=== PATIENT | female | born 1950 | race Caucasian/White ===

== ENCOUNTER 2017-07-18 20:07 | Emergency (ER) | payer OTHER | END 2017-07-18 23:05 | disposition home or self-care (01) | LOC: M ED 20:07 | DX: S63.612A Unspecified sprain of right middle finger, initial encounter (principal); S63.614A Unspecified sprain of right ring finger, initial encounter; X58.XXXA Exposure to other specified factors, initial encounter; Y92.89 Other specified places as the place of occurrence of the external cause; I11.0 Hypertensive heart disease with heart failure; E11.9 Type 2 diabetes mellitus without complications; I50.9 Heart failure, unspecified; I25.10 Atherosclerotic heart disease of native coronary artery without angina pectoris; Z79.899 Other long term (current) drug therapy; Z79.4 Long term (current) use of insulin; Z88.0 Allergy status to penicillin | CPT/HCPCS: 73130 ==

== ENCOUNTER → 2017-09-01 | Outpatient (REF) | payer OTHER ==
[2017-09-01 11:47] LABS: BASO % 0.2 % (0.0-1.0); EOS # 0.2 10^3/uL (0.0-0.50); EOS % 1.7 % (0.0-3.0); HEMOGLOBIN 12.3 g/dl (12.0-15.5); IMMATURE GRANULOCYTE % 0.3 % (0-3.0); LYMPH # 3.3 10^3/uL (1.5-4.5); MEAN CORPUSCULAR HEMOGLOBIN 30.8 pg (27.0-33.0); MEAN CORPUSCULAR HGB CONC 30.8 g/dl (32.0-36.5); MEAN CORPUSCULAR VOLUME 100.3 fl (80.0-96.0); MONO # 0.7 10^3/uL (0.0-0.8); MONO % 5.3 % (0.0-5.0); NEUTROPHILS # 8.8 10^3/uL (1.8-7.7); NEUTROPHILS % 67.5 % (36.0-66.0); PLATELET COUNT, AUTOMATED 333 10^3/uL (150-450); RED BLOOD COUNT 3.99 10^6/uL (4.00-5.40); RED CELL DISTRIBUTION WIDTH 13.2 % (11.5-14.5)
[2017-09-01 12:28] LABS: ALBUMIN 3.4 GM/DL (3.2-5.2); ALKALINE PHOSPHATASE 128 U/L (45-117); ALT/SGPT 15 U/L (12-78); ANION GAP 8 MEQ/L (8-16); AST/SGOT 13 U/L (7-37); BILIRUBIN,TOTAL 0.3 MG/DL (0.2-1.0); BLOOD UREA NITROGEN 24 MG/DL (7-18); CALCIUM LEVEL 8.6 MG/DL (8.8-10.2); CARBON DIOXIDE LEVEL 30 MEQ/L (21-32); CHLORIDE LEVEL 104 MEQ/L (98-107); CHOLESTEROL LEVEL 126 MG/DL (<200); CREATININE FOR GFR 0.87 MG/DL (0.55-1.30); GLOMERULAR FILTRATION RATE > 60.0 (>45); GLUCOSE, FASTING 92 MG/DL (70-100); HDL CHOLESTEROL 35 MG/DL (>40); LDL CHOLESTEROL 64.2 MG/DL (<100); NON-HDL-C 91 MG/DL; SODIUM LEVEL 142 MEQ/L (136-145); TOTAL PROTEIN 6.8 GM/DL (6.4-8.2); TRIGLYCERIDES LEVEL 134 MG/DL (<150)
[2017-09-01 12:59] LABS: ESTIMATED AVERAGE GLUCOSE 197 MG/DL (60-110); HEMOGLOBIN A1c 8.5 %
== END ==
LOC: M LABDRAW1 10:07
DX: I10 Essential (primary) hypertension (principal); E78.5 Hyperlipidemia, unspecified; E11.9 Type 2 diabetes mellitus without complications; J44.9 Chronic obstructive pulmonary disease, unspecified

== ENCOUNTER → 2017-09-07 | Outpatient (REF) | payer OTHER ==
[2017-09-07 16:36] LABS: CREATININE, URINE 89.1 MG/DL; MALB URINE SIEMENS 8.8 MG/L; MAU/CREAT RATIO 9.8 MCG/MG (0.0-30.0)
== END ==
LOC: M LAB REF 15:41
DX: E78.5 Hyperlipidemia, unspecified (principal); E11.9 Type 2 diabetes mellitus without complications; I10 Essential (primary) hypertension; J44.9 Chronic obstructive pulmonary disease, unspecified
CPT/HCPCS: 82043

== ENCOUNTER → 2017-11-20 | Outpatient (REF) | payer OTHER, MEDICAID ==
[2017-11-20 13:57] LABS: BASO % 0.5 % (0.0-1.0); EOS # 0.1 10^3/uL (0.0-0.50); EOS % 1.6 % (0.0-3.0); HEMATOCRIT 38.9 % (36.0-47.0); IMMATURE GRANULOCYTE % 0.3 % (0-3.0); LYMPH # 2.2 10^3/uL (1.5-4.5); LYMPH % 28.8 % (24.0-44.0); MEAN CORPUSCULAR HEMOGLOBIN 30.5 pg (27.0-33.0); MEAN CORPUSCULAR HGB CONC 30.8 g/dl (32.0-36.5); MONO # 0.5 10^3/uL (0.0-0.8); MONO % 6.2 % (0.0-5.0); NEUTROPHILS # 4.7 10^3/uL (1.8-7.7); NEUTROPHILS % 62.6 % (36.0-66.0); PLATELET COUNT, AUTOMATED 304 10^3/uL (150-450); RED BLOOD COUNT 3.93 10^6/uL (4.00-5.40); RED CELL DISTRIBUTION WIDTH 14.1 % (11.5-14.5); WHITE BLOOD COUNT 7.5 10^3/uL (4.0-10.0)
[2017-11-20 14:12] LABS: ALBUMIN 3.4 GM/DL (3.2-5.2); ALKALINE PHOSPHATASE 117 U/L (45-117); ALT/SGPT 22 U/L (12-78); ANION GAP 8 MEQ/L (8-16); AST/SGOT 19 U/L (7-37); BILIRUBIN,TOTAL 0.3 MG/DL (0.2-1.0); BLOOD UREA NITROGEN 15 MG/DL (7-18); CALCIUM LEVEL 8.8 MG/DL (8.8-10.2); CARBON DIOXIDE LEVEL 31 MEQ/L (21-32); CHLORIDE LEVEL 105 MEQ/L (98-107); CHOLESTEROL LEVEL 120 MG/DL (<200); CREATININE FOR GFR 0.74 MG/DL (0.55-1.30); ESTIMATED AVERAGE GLUCOSE 183 MG/DL (60-110); GLOMERULAR FILTRATION RATE > 60.0 (>45); GLUCOSE, FASTING 88 MG/DL (70-100); HDL CHOLESTEROL 32 MG/DL (>40); LDL CHOLESTEROL 68.2 MG/DL (<100); NON-HDL-C 88 MG/DL; POTASSIUM SERUM 4.5 MEQ/L (3.5-5.1); SODIUM LEVEL 144 MEQ/L (136-145); TOTAL PROTEIN 6.5 GM/DL (6.4-8.2); TRIGLYCERIDES LEVEL 99 MG/DL (<150)
== END ==
LOC: M LABDRAW1 13:04
DX: E11.9 Type 2 diabetes mellitus without complications (principal); E78.5 Hyperlipidemia, unspecified; I10 Essential (primary) hypertension; J44.9 Chronic obstructive pulmonary disease, unspecified
CPT/HCPCS: 84443

== ENCOUNTER → 2018-03-01 | Outpatient (REF) | payer OTHER, MEDICAID ==
[2018-03-01 16:22] LABS: ALBUMIN 3.2 GM/DL (3.2-5.2); ALBUMIN/GLOBULIN RATIO 0.97 (1.00-1.93); ALKALINE PHOSPHATASE 124 U/L (45-117); ALT/SGPT 20 U/L (12-78); ANION GAP 6 MEQ/L (8-16); AST/SGOT 19 U/L (7-37); BILIRUBIN,TOTAL 0.3 MG/DL (0.2-1.0); BLOOD UREA NITROGEN 14 MG/DL (7-18); CALCIUM LEVEL 8.2 MG/DL (8.8-10.2); CARBON DIOXIDE LEVEL 32 MEQ/L (21-32); CHLORIDE LEVEL 105 MEQ/L (98-107); CHOLESTEROL LEVEL 106 MG/DL (<200); CHOLESTEROL RISK RATIO 3.117 (<5); CREATININE FOR GFR 0.71 MG/DL (0.55-1.30); GLOMERULAR FILTRATION RATE > 60.0 (>45); GLUCOSE, FASTING 81 MG/DL (70-100); HDL CHOLESTEROL 34 MG/DL (>40); LDL CHOLESTEROL 45 MG/DL (<100); NON-HDL-C 72 MG/DL; POTASSIUM SERUM 4.7 MEQ/L (3.5-5.1); SODIUM LEVEL 143 MEQ/L (136-145); TOTAL PROTEIN 6.5 GM/DL (6.4-8.2); TRIGLYCERIDES LEVEL 135 MG/DL (<150)
[2018-03-01 17:19] LABS: ESTIMATED AVERAGE GLUCOSE 160 MG/DL (60-110); HEMOGLOBIN A1c 7.2 %
== END ==
LOC: M LABDRAW1 15:53
DX: I10 Essential (primary) hypertension (principal); E78.5 Hyperlipidemia, unspecified; E11.9 Type 2 diabetes mellitus without complications
CPT/HCPCS: 80053

== ENCOUNTER 2018-07-10 13:12 | Inpatient (IN) | payer MEDICARE, MEDICAID ==
[~2018-07-10] VITALS: Ht 153.7 cm; Wt 90.8 kg
[~2018-07-10 13:12] MED LIST: /RANI15TA PO; ACTO45TA12 PO; ACTO45TA15 PO; ADVI200C5 PO; ALBU17IN INH; ASPI81TA2 PO; BAYE1TAB5 PO; CALC600T7 PO; DAILTAB PO; DIOV320T2 PO; DOCU100C PO; GLYB5TA PO; GLYB5TAB5 PO; HYDR12CA PO; INSUN SC; JANU100T PO; LASI40TA PO; LISI-538 PO; LISI20TA PO; MECL-68 PO; METF-414 PO; METF10004 PO; METO50TA2 PO; METO50TA7 PO; PLAVIX PO; PRIL20CA9 PO; RANI150T PO; SERT-141 PO; SIMV20TA2 PO; SLOWTAB PO; THERTAB2 PO; TYLE650T25 PO; VENTAER IN; VESI5TAB PO; ZOLO100T PO
[2018-07-10] MEDS ORDERED: LISI-542 PO (13:41)
[2018-07-10] MEDS ORDERED: METF-415 PO (13:41)
[2018-07-10] MEDS ORDERED: FERR1TAB8 PO (13:41)
[2018-07-10] MEDS ORDERED: AMIT10TA PO (13:41)
[2018-07-10] MEDS ORDERED: BREO1INH PO (13:41)
[2018-07-10] MEDS ORDERED: ATOR40TA75 PO (13:41)
[2018-07-10] MEDS ORDERED: ALBU83IN NEB (13:41)
[2018-07-10] MEDS ORDERED: POTA20TA6 PO (13:41)
[2018-07-10] MEDS ORDERED: INSULANT SQ (13:41)
[2018-07-10] MEDS ORDERED: AMLO5TAB6 PO (13:41)
[2018-07-10] MEDS ORDERED: MONT10TA2 PO (13:41)
[2018-07-10] MEDS ORDERED: HYDR12.55 PO (13:41)
[2018-07-10 13:54] LABS: VENOUS BASE EXCESS 4.3 (-2.0-2.0); VENOUS HCO3 31.2 MEQ/L (23.0-27.0); VENOUS O2 SATURATION 79.1 % (60.0-80.0); VENOUS PARTIAL PRESSURE CO2 56.7 mmHg (38.0-50.0); VENOUS PARTIAL PRESSURE O2 46.1 mmHg (30.0-50.0); VENOUS PH 7.359 UNITS (7.330-7.430); VENOUS STANDARD HCO3 27.8 MEQ/L
[2018-07-10 13:55] LABS: BASO % 0.3 % (0.0-1.0); EOS # 0.1 10^3/uL (0.0-0.50); HEMATOCRIT 41.1 % (36.0-47.0); HEMOGLOBIN 12.8 g/dl (12.0-15.5); LYMPH # 2.6 10^3/uL (1.5-4.5); MEAN CORPUSCULAR HEMOGLOBIN 30.8 pg (27.0-33.0); MEAN CORPUSCULAR HGB CONC 31.1 g/dl (32.0-36.5); MONO # 0.4 10^3/uL (0.0-0.8); MONO % 7.3 % (0.0-5.0); NEUTROPHILS # 2.7 10^3/uL (1.8-7.7); NEUTROPHILS % 46.4 % (36.0-66.0); PLATELET COUNT, AUTOMATED 244 10^3/uL (150-450); RED BLOOD COUNT 4.15 10^6/uL (4.00-5.40); WHITE BLOOD COUNT 5.9 10^3/uL (4.0-10.0)
--- NOTE | 2018-07-10 13:55 | REP ---
Chest one-view HISTORY: Cough Comparison: 04/08/2016 The lungs are clear. The heart is normal in size. The pulmonary vasculature is normal in appearance. Impression: No acute disease. Electronically Signed by Nagi Woo MD 07/10/2018 01:46 P
[2018-07-10 14:28] LABS: INFLUENZA A AMPLIFICATION POSITIVE (NEGATIVE); INFLUENZA B AMPLIFICATION NEGATIVE (NEGATIVE)
[2018-07-10 14:34] LABS: ALBUMIN 3.3 GM/DL (3.2-5.2); ALT/SGPT 23 U/L (12-78); BILIRUBIN,DIRECT 0.1 MG/DL (0.0-0.2); BILIRUBIN,TOTAL 0.4 MG/DL (0.2-1.0); BLOOD UREA NITROGEN 12 MG/DL (7-18); CALCIUM LEVEL 8.3 MG/DL (8.8-10.2); CARBON DIOXIDE LEVEL 31 MEQ/L (21-32); CHLORIDE LEVEL 104 MEQ/L (98-107); CPK CREATINE PHOSPHOKINASE 104 U/L (26-192); CREATININE FOR GFR 0.63 MG/DL (0.55-1.30); GLOMERULAR FILTRATION RATE > 60.0 (>45); GLUCOSE, FASTING 57 MG/DL (70-100); MB/CK RELATIVE INDEX 1.63 (< OR =4); NT-PRO BNP 217 PG/ML (<125); POTASSIUM SERUM 4.1 MEQ/L (3.5-5.1); SODIUM LEVEL 141 MEQ/L (136-145); TOTAL PROTEIN 6.5 GM/DL (6.4-8.2); TROPONIN I < 0.02 NG/ML (< 0.10)
[2018-07-10] MEDS ORDERED: OSELTAMIVIR PHOSPHATE 75 MG CAP (TAMIFLU) PO ONE (15:15)
[2018-07-10] MEDS ORDERED: IPRATROPIUM 0.5MG/ALBUTEROL 2.5MG INH SOL UD 3ML (DUONEB)(J7620) NEB ONE (15:30)
[2018-07-10] MEDS ORDERED: methylPREDNISolone INJ 125 MG/2 ML VIAL (J2930) IV ONE (15:45)
[2018-07-10 16:00] VITALS: O2SAT 90
[2018-07-10] MEDS ORDERED: METO50TA7 PO (18:55)
[2018-07-10] MEDS ORDERED: SLOWTAB2 PO (18:55)
[2018-07-10] MEDS ORDERED: BACK500T PO (18:55)
[2018-07-10] MEDS ORDERED: ALBUTEROL SULFATE 2.5 MG/0.5 ML INH NEB SOLN NEB PRN (20:45)
[2018-07-10] MEDS: METOPROLOL TART 50 MG TAB PO SCH (21:00)
[2018-07-10 22:45] VITALS: BP 130/84
[2018-07-10] MEDS ORDERED: GLUCOSE 4 GM CHEW TABLET PO PRN (22:45)
[2018-07-10] MEDS ORDERED: GLUCAGON FOR INJ 1 MG VIAL (J1610) SC PRN (22:45)
[2018-07-10] MEDS ORDERED: DEXTROSE 50% 50 ML SYRINGE IV PRN (22:45)
[2018-07-10] MEDS: methylPREDNISolone INJ 125 MG/2 ML VIAL (J2930) IV SCH (23:32)
[2018-07-10] MEDS: LEVEMIR (INSULIN DETEMIR) 1 UNITS/0.01ML SQ SCH (23:32)
[2018-07-10] MEDS: HEPARIN SOD (PORCINE) 5000 UNITS/ML VIAL SC SCH (23:32)
[2018-07-11 02:00] VITALS: BP 156/77
[2018-07-11] MEDS: IPRATROPIUM 0.5MG/ALBUTEROL 2.5MG INH SOL UD 3ML (DUONEB)(J7620) NEB SCH ×4 (02:14→20:00)
[2018-07-11] MEDS: BENZONATATE 100 MG CAP PO PRN ×3 (02:23→20:07)
[2018-07-11] MEDS: methylPREDNISolone INJ 125 MG/2 ML VIAL (J2930) IV SCH ×3 (03:54→20:04)
[2018-07-11] MEDS: HEPARIN SOD (PORCINE) 5000 UNITS/ML VIAL SC SCH ×3 (05:14→21:08)
[2018-07-11 06:00] VITALS: BP 156/78
[2018-07-11 06:39] LABS: HEMATOCRIT 39.8 % (36.0-47.0); HEMOGLOBIN 12.6 g/dl (12.0-15.5); LYMPH # 1.2 10^3/uL (1.5-4.5); LYMPH % 38.9 % (24.0-44.0); MEAN CORPUSCULAR HGB CONC 31.7 g/dl (32.0-36.5); MEAN CORPUSCULAR VOLUME 97.8 fl (80.0-96.0); MONO # 0.1 10^3/uL (0.0-0.8); MONO % 2.3 % (0.0-5.0); NEUTROPHILS # 1.7 10^3/uL (1.8-7.7); NEUTROPHILS % 58.5 % (36.0-66.0); PLATELET COUNT, AUTOMATED 239 10^3/uL (150-450); RED BLOOD COUNT 4.07 10^6/uL (4.00-5.40)
[2018-07-11 07:16] LABS: BLOOD UREA NITROGEN 14 MG/DL (7-18); CALCIUM LEVEL 8.8 MG/DL (8.8-10.2); CARBON DIOXIDE LEVEL 27 MEQ/L (21-32); CHLORIDE LEVEL 101 MEQ/L (98-107); CREATININE FOR GFR 0.95 MG/DL (0.55-1.30); GLOMERULAR FILTRATION RATE > 60.0 (>45); GLUCOSE, FASTING 349 MG/DL (70-100); MAGNESIUM LEVEL 1.7 MG/DL (1.8-2.4); POTASSIUM SERUM 3.7 MEQ/L (3.5-5.1); SODIUM LEVEL 136 MEQ/L (136-145)
[2018-07-11] MEDS ORDERED: MAG SULF 1GM/100ML (MAG RUN) 1 GM in APPROPRIATE DILUENT 1 EA IV ONE (08:00)
[2018-07-11] MEDS: BUDESONIDE 0.5 MG/2 ML INHALATION SUSPENSION INH SCH ×2 (08:14→20:00)
--- NOTE | 2018-07-11 08:19 | REP ---
Clinical: Shortness of breath . Comparison: 07/10/2018 . Technique: PA and lateral. Findings: The mediastinum and cardiac silhouette are normal. The lung miranda are clear and without acute consolidation, effusion, or pneumothorax. The skeletal structures are intact and normal. Impression: 1. No acute cardiopulmonary process. Electronically Signed by Chilo Saunders MD 07/11/2018 08:10 A
[2018-07-11] MEDS: LEVEMIR (INSULIN DETEMIR) 1 UNITS/0.01ML SQ SCH ×2 (08:29→20:05)
[2018-07-11] MEDS: amLODIPine 5 MG TAB PO SCH (08:30)
[2018-07-11] MEDS: hydroCHLOROthiazide 12.5 MG CAPSULE PO SCH (08:30)
[2018-07-11] MEDS: ATORVASTATIN 20 MG TAB PO SCH (08:30)
[2018-07-11] MEDS: HumaLOG INSULIN (NovoLOG) PER UNIT SC SCH ×6 (08:30→20:05)
[2018-07-11] MEDS: FERROUS SULFATE 325MG TAB PO SCH (08:30)
[2018-07-11] MEDS: LISINOPRIL 5 MG TAB PO SCH (08:30)
[2018-07-11] MEDS: POTASSIUM CHLORIDE 10 MEQ SR TABLET PO SCH (08:31)
[2018-07-11] MEDS: PANTOPRAZOLE 40MG TAB (PROTONIX) PO SCH (08:31)
[2018-07-11] MEDS: METOPROLOL TART 50 MG TAB PO SCH ×2 (08:31→20:04)
[2018-07-11] MEDS: OSELTAMIVIR PHOSPHATE 75 MG CAP (TAMIFLU) PO SCH ×2 (08:31→20:05)
[2018-07-11] MEDS: AMITRIPTYLINE 10 MG TAB PO SCH (09:00)
[2018-07-11 10:00] VITALS: BP 162/80
--- NOTE | 2018-07-11 13:26 | IPNPDOC ---
Text Note Date of Service The patient was seen on 07/11/18. NOTE Subjective: Patient is 61-year-old female with a PMHx HTN, DM2, DLP, COPD, RUCHI, who presented to the Er with complaints of SOB associated with productive cough and wheezing. The emergency room, patient was found to have a COPD exacerbation and influenza A positive. She was admitted to hospitalist service for further treatment and evaluation. Patient was seen and examined at the bedside. Patient does not complain of chest pain or palpitation. She notes that she still very short of breath with associated wheezing and a productive cough that she's unable to expectorate her sputum. She denies any nausea, vomiting, abdominal pain, constipation, diarrhea or discomfort with urination. Objective: Vitals (See below) General: Lying in bed, no acute distress, comfortable, AAOx3 HEENT: NC, AT CVS: RRR, +S1S2 Lungs: Poor air entry bilaterally, mild wheezing bilaterally, no rhonchi / rales Abdomen: Soft, ND, NT Extremities: - Edema, - Calf tenderness Assessment and plan: Acute COPD exacerbation - likely 2/2 Influenza A - Clinically reports SOB, cough and wheezing - Auscultation with poor air entry bilaterally, and mild wheezing - ABG with pCO2 elevations noted - CXR 07/11: 1. No acute cardiopulmonary process. - c/w Solumedrol - c/w Oseltamivir (Day #2) - c/w Inhaled therapy as ordered HTN - BP moderately elevated - c/w Amlodipine, HCTZ, Lisinopril, Metoprolol DM2 - c/w ISS and Levemir DLP - c/w Atorvastatin RUCHI Depression - c/w Amitriptyline GI prophylaxis - c/w Protonix DVT prophylaxis - c/w Heparin VS,Fishbone, I+O VS, Fishbone, I+O Laboratory Tests 07/10/18 13:41 Red Blood Count 4.15, Mean Corpuscular Volume 99.0 H, Mean Corpuscular Hemoglobin 30.8, Mean Corpuscular Hemoglobin Concent 31.1 L, Red Cell Distribution Width 13.4, Neutrophils (%) (Auto) 46.4, Lymphocytes (%) (Auto) 44.0, Monocytes (%) (Auto) 7.3 H, Eosinophils (%) (Auto) 2.0, Basophils (%) (Auto) 0.3, Neutrophils # (Auto) 2.7, Lymphocytes # (Auto) 2.6, Monocytes # (Auto) 0.4, Eosinophils # (Auto) 0.1, Basophils # (Auto) 0.0 07/11/18 06:21 Red Blood Count 4.07, Mean Corpuscular Volume 97.8 H, Mean Corpuscular Hemoglobin 31.0, Mean Corpuscular Hemoglobin Concent 31.7 L, Red Cell Distribution Width 13.3, Neutrophils (%) (Auto) 58.5, Lymphocytes (%) (Auto) 38.9, Monocytes (%) (Auto) 2.3, Eosinophils (%) (Auto) 0.0, Basophils (%) (Auto) 0.0, Neutrophils # (Auto) 1.7 L, Lymphocytes # (Auto) 1.2 L, Monocytes # (Auto) 0.1, Eosinophils # (Auto) 0.0, Basophils # (Auto) 0.0, Calcium Level 8.8 Vital Signs Date Time Temp Pulse Resp B/P (MAP) Pulse Ox O2 Delivery O2 Flow Rate FiO2 07/11/18 10:00 97.6 77 20 162/80 (107) 92 07/10/18 22:26 Nasal Cannula 2.0 I&O- Last 24 Hours up to 6 AM 07/11/18 06:00 Intake Total 990 ml Output Total 450 ml Balance 540 ml KAYE WALLS MD Jul 11, 2018 13:26
--- NOTE | 2018-07-11 13:29 | HPE ---
DATE OF ADMISSION: 07/10/2018 CHIEF COMPLAINT: Shortness of breath. PRIMARY CARE PROVIDER: Dr. Phill Stiles This is a 67-year-old female with a history of chronic obstructive pulmonary disease (COPD), who states that she had been having a cough for approximately a week that progressively got worse. She became short of breath; and on the day of admission, she could hardly speak full sentences without getting short of breath. She came to the emergency room. Upon arrival, temperature was 99.5, pulse was 73, respiratory rate was 24, blood pressure was 195/90, oxygen (O2) saturation was 91% on room air. Laboratory studies were done. WBC was 5.9, hemoglobin 12.8, hematocrit 41.1, platelets were 244. Sodium was 141, potassium 4.1, chloride 104, CO2 was 31, BUN 12, creatinine was 0.63, calcium was 8.3. A venous blood gas (VBG) showed a pH of 7.359. Influenza A was positive. Blood cultures were drawn. Chest x-ray was done. It showed no acute disease. Electrocardiogram (EKG) was done. It showed sinus rhythm of 83. The patient was given a DuoNeb treatment, a dose of Tamiflu, and Solu-Medrol 125 intravenous (IV) with some improvement in her respiratory status. Assessment was done, and the patient will be admitted inpatient status for acute exacerbation of COPD and influenza A. The patient will be admitted to the medical floor to the hospitalist service physician, Dr. Walker. ALLERGIES: PENICILLIN. SOCIAL HISTORY: She is a . She rarely drinks alcohol. She quit smoking greater than 10 years ago. Recreational drug use none. PAST MEDICAL HISTORY: 1. COPD. 2. Hypertension. 3. Hypercholesterolemia. 4. Anemia. 5. Insulin-dependent diabetes type 2. 6. Obstructive sleep apnea. PAST SURGICAL HISTORY: 1. Total hysterectomy. 2. Kidney stone extraction. 3. Teeth extraction. HOME MEDICATIONS: - magnesium chloride one tablet by mouth daily as needed for leg cramps - Breo Ellipta 100/25 mcg per inhalation, one inhalation daily - albuterol nebulizer every 4 hours as needed for wheezing - amitriptyline 10 mg by mouth daily - amlodipine 5 mg by mouth daily - atorvastatin 40 mg by mouth daily - ferrous sulfate 325 mg by mouth daily - hydrochlorothiazide 12.5 mg by mouth daily - insulin Lantus 48 units subcutaneously twice a day - lisinopril 5 mg by mouth daily - metformin ER 1000 mg two tablets by mouth each evening - metoprolol tartrate 50 mg by mouth daily and 100 mg by mouth each evening - - Singulair 10 mg by mouth each evening - potassium chloride 20 mEq by mouth daily FAMILY HISTORY: Noncontributory. Eleven-systems review was done and was unremarkable other than the complaint of inpatient shortness of breath, cough, fever, chills. She denied any hemoptysis. PHYSICAL EXAMINATION: A 67-year-old cooperative female. Blood pressure 158/80, pulse 78, respirations 20, oxygen (O2) saturation 90% on 2 liters. The patient is alert and oriented times three. Pupils equal and react to light. Cornea and sclerae clear. Conjunctivae normal. No facial asymmetry. Pharynx, tongue, and gums pink and moist. Tongue is midline. NECK: Is supple without lymphadenopathy. No thyromegaly. No goiter. Carotids 2+ without bruit. CHEST: Has decreased breath sounds. No wheeze or retraction. HEART: Is regular. ABDOMEN: Benign. Bowel sounds positive. GENITOURINARY ()/RECTAL: Not done. EXTREMITIES: Show equal strength. Full range of motion. No clubbing, cyanosis, or edema. Peripheral pulses equal and palpable bilaterally. SKIN: Is warm and dry. IMPRESSION AND PLAN: 1. Influenza A. Tamiflu 75 mg by mouth twice a day for 5 days. 2. Acute exacerbation of chronic obstructive pulmonary disease. IV Solu-Medrol. DuoNeb treatments. Budesonide via nebulizer. improved for cough. 3. Hypertension. Continue amlodipine, metoprolol, lisinopril. 4. Hypercholesterolemia. Continue atorvastatin. 5. Insulin-dependent diabetes type 2. Continue long-acting insulin 48 units subcutaneously twice a day. Fingerstick blood sugars before meals and at bedtime with coverage. Humalog per protocol. Consistent-carbohydrate diet. 6. Anemia. Continue iron supplement. The patient will be admitted inpatient status. Will require two midnights to the hospitalist service.
[2018-07-11 14:00] VITALS: BP 149/66
[2018-07-11] MEDS: MONTELUKAST 10 MG TAB PO SCH (16:41)
[2018-07-11] MEDS ORDERED: metFORMIN XR 500MG TAB *GLUCOPHAGE XR PO SCH (17:00)
[2018-07-11 18:00] VITALS: BP 151/67
--- NOTE | 2018-07-11 20:35 | ECGEPIP ---
Stationary ECG Study [facility] - ED Test Date: 2018-07-10 Pat Name: TOM MART Department: Room: - Gender: F Vascular Physician: CT : 1950 Requested By: Samantha Rodrigues Order Number: [id number] Reading MD: Samantha Rodrigues Measurements Intervals [place] Rate: 68 P: 85 KS: 146 QRS: 19 QRSD: 83 T: 40 QT: 386 QTc: 411 Interpretive Statements SINUS RHYTHM LOW QRS VOLTAGE IN PRECORDIAL LEADS DELAYED R PROGRESSION DECREASED RATE 04/08/16 Electronically Signed On 07-11-2018 20:34:50 EST by Samantha Rodrigues
[2018-07-11 22:00] VITALS: BP 166/86
[2018-07-12 02:00] VITALS: BP 131/60
[2018-07-12] MEDS: IPRATROPIUM 0.5MG/ALBUTEROL 2.5MG INH SOL UD 3ML (DUONEB)(J7620) NEB SCH ×4 (02:00→20:13)
[2018-07-12] MEDS: HEPARIN SOD (PORCINE) 5000 UNITS/ML VIAL SC SCH ×3 (04:45→21:42)
[2018-07-12] MEDS: methylPREDNISolone INJ 125 MG/2 ML VIAL (J2930) IV SCH ×2 (04:45→16:50)
[2018-07-12 06:00] VITALS: BP 156/78
[2018-07-12 06:38] LABS: BASO % 0.1 % (0.0-1.0); HEMATOCRIT 36.9 % (36.0-47.0); HEMOGLOBIN 11.9 g/dl (12.0-15.5); LYMPH # 1.3 10^3/uL (1.5-4.5); LYMPH % 16.8 % (24.0-44.0); MEAN CORPUSCULAR HEMOGLOBIN 30.9 pg (27.0-33.0); MEAN CORPUSCULAR HGB CONC 32.2 g/dl (32.0-36.5); MEAN CORPUSCULAR VOLUME 95.8 fl (80.0-96.0); MONO # 0.5 10^3/uL (0.0-0.8); MONO % 6.5 % (0.0-5.0); NEUTROPHILS # 5.9 10^3/uL (1.8-7.7); NEUTROPHILS % 76.3 % (36.0-66.0); PLATELET COUNT, AUTOMATED 248 10^3/uL (150-450); RED BLOOD COUNT 3.85 10^6/uL (4.00-5.40); WHITE BLOOD COUNT 7.8 10^3/uL (4.0-10.0)
[2018-07-12 07:06] LABS: BLOOD UREA NITROGEN 17 MG/DL (7-18); CALCIUM LEVEL 8.5 MG/DL (8.8-10.2); CARBON DIOXIDE LEVEL 30 MEQ/L (21-32); CHLORIDE LEVEL 100 MEQ/L (98-107); CREATININE FOR GFR 0.75 MG/DL (0.55-1.30); GLOMERULAR FILTRATION RATE > 60.0 (>45); GLUCOSE, FASTING 232 MG/DL (70-100); SODIUM LEVEL 137 MEQ/L (136-145)
[2018-07-12] MEDS: HumaLOG INSULIN (NovoLOG) PER UNIT SC SCH ×5 (07:30→21:42)
[2018-07-12 07:54] LABS: MAGNESIUM LEVEL 2.2 MG/DL (1.8-2.4)
[2018-07-12 08:30] VITALS: BP 142/70
[2018-07-12] MEDS: BUDESONIDE 0.5 MG/2 ML INHALATION SUSPENSION INH SCH ×2 (08:42→20:13)
[2018-07-12] MEDS: ACETYLCYSTEINE 20% 4 ML VIAL (200MG/ML) INH SCH ×3 (08:42→20:13)
[2018-07-12] MEDS: AMITRIPTYLINE 10 MG TAB PO SCH (09:00)
--- NOTE | 2018-07-12 10:46 | IPNPDOC ---
Text Note Date of Service The patient was seen on 07/12/18. NOTE Subjective: Patient is 61-year-old female with a PMHx HTN, DM2, DLP, COPD, RUCHI, who presented to the Er with complaints of SOB associated with productive cough and wheezing. The emergency room, patient was found to have a COPD exacerbation and influenza A positive. She was admitted to hospitalist service for further treatment and evaluation. Patient was seen and examined at the bedside. Clinically patient notes that her breathing is doing better. She still reports difficulty expectorating. Denies any CP, or palpitations. Denies any N/V, abdominal pain, C/D or dysuria. Objective: Vitals (See below) General: Lying in bed, no acute distress, comfortable, AAOx3 HEENT: NC, AT CVS: RRR, +S1S2 Lungs: Poor air entry bilaterally, no significant wheezing appreciated, no rhonchi / rales Abdomen: Soft, Non-distended, non-tender Extremities: No evidence of edema, - Calf tenderness Assessment and plan: Acute COPD exacerbation - likely 2/2 Influenza A - Clinically reports SOB, cough and wheezing - Auscultation with poor air entry bilaterally, and mild wheezing - ABG with pCO2 elevations noted - CXR 07/11: 1. No acute cardiopulmonary process. - c/w Solumedrol; will reduce dose - c/w Oseltamivir (Day #3) - c/w Inhaled therapy as ordered HTN - BP better controlled - c/w Amlodipine, HCTZ, Lisinopril, Metoprolol DM2 - c/w ISS and Levemir DLP - c/w Atorvastatin RUCHI Depression - c/w Amitriptyline GI prophylaxis - c/w Protonix DVT prophylaxis - c/w Heparin VS,Fishbone, I+O VS, Fishbone, I+O Laboratory Tests 07/12/18 06:23 Red Blood Count 3.85 L, Mean Corpuscular Volume 95.8, Mean Corpuscular Hemoglobin 30.9, Mean Corpuscular Hemoglobin Concent 32.2, Red Cell Distribution Width 13.5, Neutrophils (%) (Auto) 76.3 H, Lymphocytes (%) (Auto) 16.8 L, Monocytes (%) (Auto) 6.5 H, Eosinophils (%) (Auto) 0.0, Basophils (%) (Auto) 0.1, Neutrophils # (Auto) 5.9, Lymphocytes # (Auto) 1.3 L, Monocytes # (Auto) 0.5, Eosinophils # (Auto) 0.0, Basophils # (Auto) 0.0, Calcium Level 8.5 L Vital Signs Date Time Temp Pulse Resp B/P (MAP) Pulse Ox O2 Delivery O2 Flow Rate FiO2 07/12/18 08:30 98.3 62 20 142/70 (94) 89 07/10/18 22:26 Nasal Cannula 2.0 I&O- Last 24 Hours up to 6 AM 07/12/18 06:00 Intake Total 1560 ml Output Total 1350 ml Balance 210 ml KAYE WALLS MD Jul 12, 2018 10:46
[2018-07-12] MEDS: OSELTAMIVIR PHOSPHATE 75 MG CAP (TAMIFLU) PO SCH ×2 (11:19→21:43)
[2018-07-12] MEDS: LISINOPRIL 5 MG TAB PO SCH (11:19)
[2018-07-12] MEDS: PANTOPRAZOLE 40MG TAB (PROTONIX) PO SCH (11:21)
[2018-07-12] MEDS: METOPROLOL TART 50 MG TAB PO SCH ×2 (11:21→21:43)
[2018-07-12] MEDS: hydroCHLOROthiazide 12.5 MG CAPSULE PO SCH (11:21)
[2018-07-12] MEDS: POTASSIUM CHLORIDE 10 MEQ SR TABLET PO SCH (11:21)
[2018-07-12] MEDS: amLODIPine 5 MG TAB PO SCH (11:22)
[2018-07-12] MEDS: ATORVASTATIN 20 MG TAB PO SCH (11:22)
[2018-07-12] MEDS: FERROUS SULFATE 325MG TAB PO SCH (11:22)
[2018-07-12] MEDS: LEVEMIR (INSULIN DETEMIR) 1 UNITS/0.01ML SQ SCH ×2 (11:23→21:42)
[2018-07-12 14:15] VITALS: BP 144/70
[2018-07-12] MEDS: MONTELUKAST 10 MG TAB PO SCH (16:50)
[2018-07-12 22:00] VITALS: BP 152/68
[2018-07-13] MEDS: IPRATROPIUM 0.5MG/ALBUTEROL 2.5MG INH SOL UD 3ML (DUONEB)(J7620) NEB SCH ×4 (00:48→20:44)
[2018-07-13] MEDS: HEPARIN SOD (PORCINE) 5000 UNITS/ML VIAL SC SCH ×3 (05:15→21:20)
[2018-07-13] MEDS: methylPREDNISolone INJ 125 MG/2 ML VIAL (J2930) IV SCH (05:16)
[2018-07-13 06:00] VITALS: BP 122/62
[2018-07-13 06:43] LABS: BASO % 0.1 % (0.0-1.0); HEMATOCRIT 36.9 % (36.0-47.0); HEMOGLOBIN 11.8 g/dl (12.0-15.5); LYMPH % 20.6 % (24.0-44.0); MEAN CORPUSCULAR HEMOGLOBIN 31.5 pg (27.0-33.0); MEAN CORPUSCULAR VOLUME 98.4 fl (80.0-96.0); MONO # 0.8 10^3/uL (0.0-0.8); MONO % 8.1 % (0.0-5.0); NEUTROPHILS # 6.8 10^3/uL (1.8-7.7); NEUTROPHILS % 70.6 % (36.0-66.0); PLATELET COUNT, AUTOMATED 249 10^3/uL (150-450); RED BLOOD COUNT 3.75 10^6/uL (4.00-5.40); WHITE BLOOD COUNT 9.7 10^3/uL (4.0-10.0)
[2018-07-13 07:13] LABS: BLOOD UREA NITROGEN 16 MG/DL (7-18); CALCIUM LEVEL 8.2 MG/DL (8.8-10.2); CARBON DIOXIDE LEVEL 30 MEQ/L (21-32); CHLORIDE LEVEL 103 MEQ/L (98-107); CREATININE FOR GFR 0.76 MG/DL (0.55-1.30); GLOMERULAR FILTRATION RATE > 60.0 (>45); GLUCOSE, FASTING 183 MG/DL (70-100); MAGNESIUM LEVEL 2.1 MG/DL (1.8-2.4); POTASSIUM SERUM 4.1 MEQ/L (3.5-5.1); SODIUM LEVEL 139 MEQ/L (136-145)
[2018-07-13] MEDS: ACETYLCYSTEINE 20% 4 ML VIAL (200MG/ML) INH SCH ×2 (07:22→20:44)
[2018-07-13] MEDS: BUDESONIDE 0.5 MG/2 ML INHALATION SUSPENSION INH SCH ×2 (07:22→20:44)
[2018-07-13] MEDS: HumaLOG INSULIN (NovoLOG) PER UNIT SC SCH ×4 (07:55→21:20)
[2018-07-13 08:03] VITALS: BP 158/80
[2018-07-13] MEDS: AMITRIPTYLINE 10 MG TAB PO SCH (10:37)
[2018-07-13] MEDS: LISINOPRIL 5 MG TAB PO SCH (10:38)
[2018-07-13] MEDS: ATORVASTATIN 20 MG TAB PO SCH (10:38)
[2018-07-13] MEDS: OSELTAMIVIR PHOSPHATE 75 MG CAP (TAMIFLU) PO SCH ×2 (10:39→21:19)
[2018-07-13] MEDS: POTASSIUM CHLORIDE 10 MEQ SR TABLET PO SCH (10:39)
[2018-07-13] MEDS: FERROUS SULFATE 325MG TAB PO SCH (10:40)
[2018-07-13] MEDS: hydroCHLOROthiazide 12.5 MG CAPSULE PO SCH (10:40)
[2018-07-13] MEDS: METOPROLOL TART 50 MG TAB PO SCH ×2 (10:40→21:19)
[2018-07-13] MEDS: PANTOPRAZOLE 40MG TAB (PROTONIX) PO SCH (10:41)
[2018-07-13] MEDS: amLODIPine 5 MG TAB PO SCH (10:41)
[2018-07-13] MEDS: LEVEMIR (INSULIN DETEMIR) 1 UNITS/0.01ML SQ SCH ×2 (10:42→21:21)
[2018-07-13 12:30] VITALS: BP 144/78
[2018-07-13] MEDS: ACETAMINOPHEN TAB 650MG DOSE (2X325MG) PO PRN (13:29)
[2018-07-13 14:00] VITALS: BP 122/60
--- NOTE | 2018-07-13 15:36 | IPNPDOC ---
Text Note Date of Service The patient was seen on 07/13/18. NOTE Subjective: Patient is 61-year-old female with a PMHx HTN, DM2, DLP, COPD, RUCHI, who presented to the Er with complaints of SOB associated with productive cough and wheezing. The emergency room, patient was found to have a COPD exacerbation and influenza A positive. She was admitted to hospitalist service for further treatment and evaluation. Patient was seen and examined at the bedside. Patient notes that there breathing is doing slightly better. They've noted that they have been able to expectorate sputum. He denies any nausea or vomiting, any abdominal pain. The patient, diarrhea or urinary discomfort. Objective: Vitals (See below) General: Lying in bed, no acute distress, comfortable, AAOx3 HEENT: NC, AT CVS: RRR, +S1S2 Lungs: Poor air entry bilaterally, auscultation is without rhonchi, rales or wheezing Abdomen: Abdomen is soft, non-distended without tenderness Extremities: No evidence of edema, - Calf tenderness Assessment and plan: Acute COPD exacerbation - likely 2/2 Influenza A - Clinically reports SOB, cough and wheezing - Auscultation with poor air entry bilaterally, and mild wheezing - ABG with pCO2 elevations noted - CXR 07/11: 1. No acute cardiopulmonary process. - c/w Solumedrol; will reduce dose - c/w Oseltamivir (Day #4) - c/w Inhaled therapy as ordered Positive blood cultures (1 of 2 bottles) - likely 2/2 contaminant - Patient has no fevers or chills - No lactic acidosis or leukocytosis - Maintains afebrile and hemodynamically stable - Blood cultures 07/10: (1 of 2): Gram-positive cocci in clusters - Repeat blood cultures pending - Will continue to hold off on antibiotics HTN - BP better controlled - c/w Amlodipine, HCTZ, Lisinopril, Metoprolol DM2 - c/w ISS and Levemir DLP - c/w Atorvastatin RUCHI Depression - c/w Amitriptyline GI prophylaxis - c/w Protonix DVT prophylaxis - c/w Heparin Disposition: - Awaiting for repeat blood cultures - Will likely transition patient to oral corticosteroids within the next 24-48 hours VS,Fishbone, I+O VS, Fishbone, I+O Laboratory Tests 07/13/18 06:06 Red Blood Count 3.75 L, Mean Corpuscular Volume 98.4 H, Mean Corpuscular Hemo globin 31.5, Mean Corpuscular Hemoglobin Concent 32.0, Red Cell Distribution Width 13.8, Neutrophils (%) (Auto) 70.6 H, Lymphocytes (%) (Auto) 20.6 L, Monocytes (%) (Auto) 8.1 H, Eosinophils (%) (Auto) 0.0, Basophils (%) (Auto) 0.1, Neutrophils # (Auto) 6.8, Lymphocytes # (Auto) 2.0, Monocytes # (Auto) 0.8, Eosinophils # (Auto) 0.0, Basophils # (Auto) 0.0, Calcium Level 8.2 L Vital Signs Date Time Temp Pulse Resp B/P (MAP) Pulse Ox O2 Delivery O2 Flow Rate FiO2 07/13/18 14:00 98.5 75 18 122/60 (80) 90 07/10/18 22:26 Nasal Cannula 2.0 I&O- Last 24 Hours up to 6 AM 07/13/18 06:00 Intake Total 2450 ml Output Total 1700 ml Balance 750 ml KAYE WALLS MD Jul 13, 2018 15:36
[2018-07-13] MEDS: MONTELUKAST 10 MG TAB PO SCH (16:10)
[2018-07-13] MEDS: methylPREDNISolone INJ 40 MG/1 ML VIAL (J2920) IV SCH (16:10)
[2018-07-13 22:00] VITALS: BP 167/79
[2018-07-14] MEDS: IPRATROPIUM 0.5MG/ALBUTEROL 2.5MG INH SOL UD 3ML (DUONEB)(J7620) NEB SCH ×4 (02:00→21:02)
[2018-07-14] MEDS: HEPARIN SOD (PORCINE) 5000 UNITS/ML VIAL SC SCH ×3 (05:35→21:09)
[2018-07-14] MEDS: methylPREDNISolone INJ 40 MG/1 ML VIAL (J2920) IV SCH (05:35)
[2018-07-14 06:00] VITALS: BP 138/68
[2018-07-14 06:53] LABS: MAGNESIUM LEVEL 2.1 MG/DL (1.8-2.4)
[2018-07-14] MEDS: HumaLOG INSULIN (NovoLOG) PER UNIT SC SCH ×4 (07:30→21:08)
[2018-07-14] MEDS: BUDESONIDE 0.5 MG/2 ML INHALATION SUSPENSION INH SCH ×2 (07:31→21:02)
[2018-07-14] MEDS: ACETYLCYSTEINE 20% 4 ML VIAL (200MG/ML) INH SCH ×2 (07:32→21:02)
[2018-07-14 07:50] LABS: BASO % 0.2 % (0.0-1.0); HEMATOCRIT 38.1 % (36.0-47.0); HEMOGLOBIN 12.1 g/dl (12.0-15.5); LYMPH # 4.1 10^3/uL (1.5-4.5); LYMPH % 38.5 % (24.0-44.0); MEAN CORPUSCULAR HEMOGLOBIN 31.6 pg (27.0-33.0); MEAN CORPUSCULAR HGB CONC 31.8 g/dl (32.0-36.5); MEAN CORPUSCULAR VOLUME 99.5 fl (80.0-96.0); MONO # 0.9 10^3/uL (0.0-0.8); MONO % 8.1 % (0.0-5.0); NEUTROPHILS # 5.6 10^3/uL (1.8-7.7); NEUTROPHILS % 52.4 % (36.0-66.0); PLATELET COUNT, AUTOMATED 270 10^3/uL (150-450); RED BLOOD COUNT 3.83 10^6/uL (4.00-5.40); WHITE BLOOD COUNT 10.7 10^3/uL (4.0-10.0)
[2018-07-14 07:55] LABS: BLOOD UREA NITROGEN 19 MG/DL (7-18); CALCIUM LEVEL 8.4 MG/DL (8.8-10.2); CARBON DIOXIDE LEVEL 30 MEQ/L (21-32); CHLORIDE LEVEL 105 MEQ/L (98-107); CREATININE FOR GFR 0.77 MG/DL (0.55-1.30); GLOMERULAR FILTRATION RATE > 60.0 (>45); GLUCOSE, FASTING 80 MG/DL (70-100); POTASSIUM SERUM 3.7 MEQ/L (3.5-5.1); SODIUM LEVEL 142 MEQ/L (136-145)
[2018-07-14] MEDS: ATORVASTATIN 20 MG TAB PO SCH (09:35)
[2018-07-14] MEDS: FERROUS SULFATE 325MG TAB PO SCH (09:35)
[2018-07-14] MEDS: AMITRIPTYLINE 10 MG TAB PO SCH (09:35)
[2018-07-14] MEDS: PANTOPRAZOLE 40MG TAB (PROTONIX) PO SCH (09:36)
[2018-07-14] MEDS: POTASSIUM CHLORIDE 10 MEQ SR TABLET PO SCH (09:36)
[2018-07-14] MEDS: OSELTAMIVIR PHOSPHATE 75 MG CAP (TAMIFLU) PO SCH ×2 (09:36→21:10)
[2018-07-14] MEDS: LISINOPRIL 5 MG TAB PO SCH (09:37)
[2018-07-14] MEDS: METOPROLOL TART 50 MG TAB PO SCH ×2 (09:37→21:10)
[2018-07-14] MEDS: amLODIPine 5 MG TAB PO SCH (09:38)
[2018-07-14] MEDS: hydroCHLOROthiazide 12.5 MG CAPSULE PO SCH (09:38)
[2018-07-14] MEDS: LEVEMIR (INSULIN DETEMIR) 1 UNITS/0.01ML SQ SCH ×2 (10:14→21:09)
[2018-07-14] MEDS: BENZONATATE 100 MG CAP PO PRN ×2 (11:11→21:44)
[2018-07-14 14:00] VITALS: BP 134/67
--- NOTE | 2018-07-14 16:16 | IPNPDOC ---
Text Note Date of Service The patient was seen on 07/14/18. NOTE Subjective: Patient is 61-year-old female with a PMHx HTN, DM2, DLP, COPD, RUCHI, who presented to the Er with complaints of SOB associated with productive cough and wheezing. The emergency room, patient was found to have a COPD exacerbation and influenza A positive. She was admitted to hospitalist service for further treatment and evaluation. Patient was seen and examined at the bedside. . Currently, patient is that her breathing is doing better. Still has mild wheezing but does not have any significant cough. Denies chest pain or palpitations. Denies any nausea, vomiting, abdominal pain, constipation, diarrhea or discomfort with urination. Objective: Vitals (See below) General: Lying in bed, no acute distress, comfortable, AAOx3 HEENT: NC, AT CVS: RRR, +S1S2 Lungs: Poor air entry bilaterally, mild wheezing, no rhonchi / rales Abdomen: Abdomen is soft, non-distended without tenderness Extremities: No evidence of edema, - Calf tenderness Assessment and plan: Acute COPD exacerbation - likely 2/2 Influenza A - Clinically patient is feeling better, notes that her breathing has improved - Auscultation with minimal qheezing - ABG with pCO2 elevations noted - CXR 07/11: 1. No acute cardiopulmonary process. - Will start Prednisone; Will DC Solumedrol - c/w Oseltamivir (Day #5) - c/w Inhaled therapy as ordered Positive blood cultures (1 of 2 bottles) - 2/2 Staph epidermidis - likely 2/2 contaminant - Patient has no fevers or chills - No lactic acidosis or leukocytosis - Maintains afebrile and hemodynamically stable - Blood cultures 07/10: (1 of 2): Gram-positive cocci in clusters - Blood cultures 07/13: no growth at 24 hours - Will continue to hold off on antibiotics HTN - BP better controlled - c/w Amlodipine, HCTZ, Lisinopril, Metoprolol DM2 - c/w ISS and Levemir DLP - c/w Atorvastatin RUCHI Depression - c/w Amitriptyline GI prophylaxis - c/w Protonix DVT prophylaxis - c/w Heparin Disposition: - Will start PT VS,Fishbone, I+O VS, Fishbone, I+O Laboratory Tests 07/14/18 06:11 Red Blood Count 3.83 L, Mean Corpuscular Volume 99.5 H, Mean Corpuscular Hemoglobin 31.6, Mean Corpuscular Hemoglobin Concent 31.8 L, Red Cell Distribution Width 13.7, Neutrophils (%) (Auto) 52.4, Lymphocytes (%) (Auto) 38.5, Monocytes (%) (Auto) 8.1 H, Eosinophils (%) (Auto) 0.0, Basophils (%) (Auto) 0.2, Neutrophils # (Auto) 5.6, Lymphocytes # (Auto) 4.1, Monocytes # (Auto) 0.9 H, Eosinophils # (Auto) 0.0, Basophils # (Auto) 0.0 07/14/18 06:13 Calcium Level 8.4 L Vital Signs Date Time Temp Pulse Resp B/P (MAP) Pulse Ox O2 Delivery O2 Flow Rate FiO2 07/14/18 14:00 97.7 70 20 134/67 (89) 97 07/10/18 22:26 Nasal Cannula 2.0 I&O- Last 24 Hours up to 6 AM 07/14/18 06:00 Intake Total 1440 ml Output Total 1750 ml Balance -310 ml KAYE WALLS MD Jul 14, 2018 16:16
[2018-07-14] MEDS: MONTELUKAST 10 MG TAB PO SCH (17:53)
[2018-07-14] MEDS ORDERED: HEPARIN SOD (PORCINE) 5000 UNITS/ML VIAL As Ordered ONE (20:52)
[2018-07-14] MEDS ORDERED: predniSONE 20 MG TAB PO SCH (21:00)
[2018-07-14 22:00] VITALS: BP 143/63
[2018-07-15] MEDS: IPRATROPIUM 0.5MG/ALBUTEROL 2.5MG INH SOL UD 3ML (DUONEB)(J7620) NEB SCH ×4 (02:00→19:08)
[2018-07-15] MEDS: HEPARIN SOD (PORCINE) 5000 UNITS/ML VIAL SC SCH ×3 (05:39→21:48)
[2018-07-15] MEDS: BENZONATATE 100 MG CAP PO PRN ×2 (05:39→21:48)
[2018-07-15 06:00] VITALS: BP 130/59
[2018-07-15 06:57] LABS: BASO % 0.2 % (0.0-1.0); HEMATOCRIT 38.7 % (36.0-47.0); HEMOGLOBIN 12.3 g/dl (12.0-15.5); LYMPH # 1.7 10^3/uL (1.5-4.5); LYMPH % 17.2 % (24.0-44.0); MEAN CORPUSCULAR HEMOGLOBIN 31.3 pg (27.0-33.0); MEAN CORPUSCULAR HGB CONC 31.8 g/dl (32.0-36.5); MEAN CORPUSCULAR VOLUME 98.5 fl (80.0-96.0); MONO # 0.7 10^3/uL (0.0-0.8); MONO % 6.8 % (0.0-5.0); NEUTROPHILS # 7.2 10^3/uL (1.8-7.7); NEUTROPHILS % 74.6 % (36.0-66.0); PLATELET COUNT, AUTOMATED 290 10^3/uL (150-450); RED BLOOD COUNT 3.93 10^6/uL (4.00-5.40); WHITE BLOOD COUNT 9.6 10^3/uL (4.0-10.0)
[2018-07-15 07:13] LABS: BLOOD UREA NITROGEN 18 MG/DL (7-18); CALCIUM LEVEL 8.2 MG/DL (8.8-10.2); CARBON DIOXIDE LEVEL 33 MEQ/L (21-32); CHLORIDE LEVEL 101 MEQ/L (98-107); CREATININE FOR GFR 0.77 MG/DL (0.55-1.30); GLOMERULAR FILTRATION RATE > 60.0 (>45); GLUCOSE, FASTING 211 MG/DL (70-100); MAGNESIUM LEVEL 2.2 MG/DL (1.8-2.4); POTASSIUM SERUM 4.3 MEQ/L (3.5-5.1); SODIUM LEVEL 139 MEQ/L (136-145)
[2018-07-15] MEDS: BUDESONIDE 0.5 MG/2 ML INHALATION SUSPENSION INH SCH ×2 (08:45→19:08)
[2018-07-15] MEDS: ACETYLCYSTEINE 20% 4 ML VIAL (200MG/ML) INH SCH ×2 (08:45→19:08)
[2018-07-15] MEDS: PANTOPRAZOLE 40MG TAB (PROTONIX) PO SCH (09:09)
[2018-07-15] MEDS: AMITRIPTYLINE 10 MG TAB PO SCH (09:10)
[2018-07-15] MEDS: predniSONE 20 MG TAB PO SCH (09:10)
[2018-07-15] MEDS: hydroCHLOROthiazide 12.5 MG CAPSULE PO SCH (09:10)
[2018-07-15] MEDS: METOPROLOL TART 50 MG TAB PO SCH ×2 (09:10→21:48)
[2018-07-15] MEDS: OSELTAMIVIR PHOSPHATE 75 MG CAP (TAMIFLU) PO SCH ×2 (09:10→21:48)
[2018-07-15] MEDS: LISINOPRIL 5 MG TAB PO SCH (09:11)
[2018-07-15] MEDS: amLODIPine 5 MG TAB PO SCH (09:11)
[2018-07-15] MEDS: FERROUS SULFATE 325MG TAB PO SCH (09:11)
[2018-07-15] MEDS: POTASSIUM CHLORIDE 10 MEQ SR TABLET PO SCH (09:11)
[2018-07-15] MEDS: ATORVASTATIN 20 MG TAB PO SCH (09:11)
[2018-07-15] MEDS: LEVEMIR (INSULIN DETEMIR) 1 UNITS/0.01ML SQ SCH ×2 (09:12→21:48)
[2018-07-15] MEDS: HumaLOG INSULIN (NovoLOG) PER UNIT SC SCH ×4 (09:12→22:11)
--- NOTE | 2018-07-15 11:52 | IPNPDOC ---
Text Note Date of Service The patient was seen on 07/15/18. NOTE Subjective: Patient is 61-year-old female with a PMHx HTN, DM2, DLP, COPD, RUCHI, who presented to the Er with complaints of SOB associated with productive cough and wheezing. The emergency room, patient was found to have a COPD exacerbation and influenza A positive. She was admitted to hospitalist service for further treatment and evaluation. Patient was seen and examined at the bedside. Patient notes that her breathing is doing better. However, she is not ambulated much, other than walking to the bathroom. Patient notes that she still has a mild cough. Denies any wheezing. Denies chest pain or palpitations. Denies nausea, vomiting, abdominal pain, constipation or diarrhea. Denies any urinary discomfort. Objective: Vitals (See below) General: Lying in bed, no acute distress, comfortable, AAOx3 HEENT: NC, AT CVS: RRR, +S1S2 Lungs: Fair. She bilaterally without any significant wheezing, rales or rhonchi Abdomen: Abdomen is soft, abdomen does not reveal any tenderness, nor is there any distention Extremities: Lower extremities are without any edema, - Calf tenderness Assessment and plan: Acute COPD exacerbation - likely 2/2 Influenza A - Clinically patient is feeling better, notes that her breathing has improved - Auscultation does not reveal any wheezing - ABG with pCO2 elevations noted - CXR 07/11: 1. No acute cardiopulmonary process. - c/w Prednisone; s/p Solumedrol - will taper prednisone as clinical improvement is noted - c/w Oseltamivir (Day #6) - c/w Inhaled therapy as ordered Positive blood cultures (1 of 2 bottles) - 2/2 Staph epidermidis - likely 2/2 contaminant - Patient has no fevers or chills - No lactic acidosis or leukocytosis - Maintains afebrile and hemodynamically stable - Blood cultures 07/10: (1 of 2): Gram-positive cocci in clusters - Blood cultures 07/13: no growth at 48 hours - Will continue to hold off on antibiotics HTN - BP better controlled - c/w Amlodipine, HCTZ, Lisinopril, Metoprolol DM2 - c/w ISS and Levemir DLP - c/w Atorvastatin RUCHI Depression - c/w Amitriptyline GI prophylaxis - c/w Protonix DVT prophylaxis - c/w Heparin Disposition: - c/w PT - awaiting clearance VS,Luis Enriqueradha, I+O VS, Ochoae, I+O Laboratory Tests 07/15/18 06:34 Red Blood Count 3.93 L, Mean Corpuscular Volume 98.5 H, Mean Corpuscular Hemoglobin 31.3, Mean Corpuscular Hemoglobin Concent 31.8 L, Red Cell Distribution Width 13.6, Neutrophils (%) (Auto) 74.6 H, Lymphocytes (%) (Auto) 17.2 L, Monocytes (%) (Auto) 6.8 H, Eosinophils (%) (Auto) 0.0, Basophils (%) (Auto) 0.2, Neutrophils # (Auto) 7.2, Lymphocytes # (Auto) 1.7, Monocytes # (Auto) 0.7, Eosinophils # (Auto) 0.0, Basophils # (Auto) 0.0, Calcium Level 8.2 L Vital Signs Date Time Temp Pulse Resp B/P (MAP) Pulse Ox O2 Delivery O2 Flow Rate FiO2 07/15/18 09:11 130/59 07/15/18 09:11 57 07/15/18 06:00 97.6 18 93 07/10/18 22:26 Nasal Cannula 2.0 I&O- Last 24 Hours up to 6 AM 07/15/18 06:00 Intake Total 4320 ml Output Total 3400 ml Balance 920 ml KAYE WALLS MD Jul 15, 2018 11:52
[2018-07-15 14:00] VITALS: BP 135/60
[2018-07-15] MEDS: MONTELUKAST 10 MG TAB PO SCH (17:33)
[2018-07-15 22:00] VITALS: BP 131/62
[2018-07-16] MEDS: IPRATROPIUM 0.5MG/ALBUTEROL 2.5MG INH SOL UD 3ML (DUONEB)(J7620) NEB SCH ×2 (05:35→08:46)
[2018-07-16 06:00] VITALS: BP 166/76
[2018-07-16] MEDS: HEPARIN SOD (PORCINE) 5000 UNITS/ML VIAL SC SCH (06:00)
[2018-07-16] MEDS: ACETAMINOPHEN TAB 650MG DOSE (2X325MG) PO PRN (06:15)
[2018-07-16 07:41] LABS: HEMATOCRIT 42.3 % (36.0-47.0); HEMOGLOBIN 13.5 g/dl (12.0-15.5); MEAN CORPUSCULAR HEMOGLOBIN 31.8 pg (27.0-33.0); MEAN CORPUSCULAR HGB CONC 31.9 g/dl (32.0-36.5); MEAN CORPUSCULAR VOLUME 99.5 fl (80.0-96.0); PLATELET COUNT, AUTOMATED 330 10^3/uL (150-450); RED BLOOD COUNT 4.25 10^6/uL (4.00-5.40)
[2018-07-16 07:42] LABS: WHITE BLOOD COUNT 13.6 10^3/uL (4.0-10.0)
[2018-07-16 08:16] LABS: BLOOD UREA NITROGEN 19 MG/DL (7-18); CALCIUM LEVEL 8.1 MG/DL (8.8-10.2); CARBON DIOXIDE LEVEL 32 MEQ/L (21-32); CHLORIDE LEVEL 102 MEQ/L (98-107); CREATININE FOR GFR 0.85 MG/DL (0.55-1.30); GLOMERULAR FILTRATION RATE > 60.0 (>45); GLUCOSE, FASTING 66 MG/DL (70-100); MAGNESIUM LEVEL 2.2 MG/DL (1.8-2.4); POTASSIUM SERUM 3.6 MEQ/L (3.5-5.1); SODIUM LEVEL 140 MEQ/L (136-145)
[2018-07-16] MEDS: METOPROLOL TART 50 MG TAB PO SCH (08:40)
[2018-07-16] MEDS: hydroCHLOROthiazide 12.5 MG CAPSULE PO SCH (08:41)
[2018-07-16] MEDS: POTASSIUM CHLORIDE 10 MEQ SR TABLET PO SCH (08:41)
[2018-07-16] MEDS: PANTOPRAZOLE 40MG TAB (PROTONIX) PO SCH (08:41)
[2018-07-16] MEDS: AMITRIPTYLINE 10 MG TAB PO SCH (08:41)
[2018-07-16] MEDS: amLODIPine 5 MG TAB PO SCH (08:41)
[2018-07-16] MEDS: FERROUS SULFATE 325MG TAB PO SCH (08:41)
[2018-07-16] MEDS: ATORVASTATIN 20 MG TAB PO SCH (08:41)
[2018-07-16] MEDS: predniSONE 20 MG TAB PO SCH (08:41)
[2018-07-16] MEDS: LEVEMIR (INSULIN DETEMIR) 1 UNITS/0.01ML SQ SCH (08:42)
[2018-07-16] MEDS: HumaLOG INSULIN (NovoLOG) PER UNIT SC SCH ×2 (08:43→12:00)
[2018-07-16] MEDS: BUDESONIDE 0.5 MG/2 ML INHALATION SUSPENSION INH SCH (08:46)
[2018-07-16] MEDS: ACETYLCYSTEINE 20% 4 ML VIAL (200MG/ML) INH SCH (08:46)
[2018-07-16 08:47] LABS: ANISOCYTOSIS 1+; ATYPICAL LYMPH 2 % (0-5); LYMPHOCYTES 40 % (16-52); MONOCYTES 5 % (0-8); MYELOCYTES 1 % (0-0); NEUTROPHILS 52 % (35-75); PLATELET ESTIMATE NORMAL (NORMAL); POLYCHROMASIA 1+
[2018-07-16 09:00] VITALS: BP 166/76
[2018-07-16] MEDS: LISINOPRIL 5 MG TAB PO SCH (09:00)
[2018-07-16] MEDS ORDERED: PRED10TA2 PO (10:46)
--- NOTE | 2018-07-16 16:27 | DS.PDOC ---
Discharge Summary General Date of Admission Jul 10, 2018 at 20:24 Date of Discharge 07/16/2018 Discharge Summary PROCEDURES PERFORMED DURING STAY: [None]. ADMITTING DIAGNOSES / DISCHARGE DIAGNOSES: Acute COPD exacerbation - likely 2/2 Influenza A Positive blood cultures (1 of 2 bottles) - 2/2 Staph epidermidis - likely 2/2 contaminant HTN DM2 DLP RUCHI Depression GI prophylaxis DVT prophylaxis COMPLICATIONS/CHIEF COMPLAINT: Shortness of breath HISTORY OF PRESENT ILLNESS: Patient is 61-year-old female with a PMHx HTN, DM2, DLP, COPD, RUCHI, who presented to the Er with complaints of SOB associated with productive cough and wheezing. The emergency room, patient was found to have a COPD exacerbation and influenza A positive. She was admitted to hospitalist service for further treatment and evaluation. HOSPITAL COURSE:Acute COPD exacerbation - likely 2/2 Influenza A - Clinically is significantly improved; denies any shortness of breath, wheezing or chest pain - Auscultation does not reveal any wheezing - ABG with pCO2 elevations noted - CXR 07/11: 1. No acute cardiopulmonary process. - c/w Prednisone taper; s/p Solumedrol - Has completed Oseltamivir for 7 day course - c/w Inhaled therapy as ordered Positive blood cultures (1 of 2 bottles) - 2/2 Staph epidermidis - likely 2/2 c ontaminant - Patient has no fevers or chills - No lactic acidosis or leukocytosis - Maintains afebrile and hemodynamically stable - Blood cultures 07/10: (1 of 2): Gram-positive cocci in clusters - Blood cultures 07/13: no growth at 48 hours - Will continue to hold off on antibiotics HTN - BP better controlled - c/w Amlodipine, HCTZ, Lisinopril, Metoprolol DM2 - c/w ISS and Levemir DLP - c/w Atorvastatin RUCHI Depression - c/w Amitriptyline GI prophylaxis - c/w Protonix DVT prophylaxis - c/w Heparin DISCHARGE MEDICATIONS: Please see below. ALLERGIES: Please see below. PHYSICAL EXAMINATION ON DISCHARGE: Vitals (See below) General: Lying in bed, no acute distress, comfortable, AAOx3 HEENT: NC, AT CVS: RRR, +S1S2 Lungs: Air entry b/l is fair; no appreciable rhonchi / wheezing / rales Abdomen: Abdomen is soft, abdomen does not reveal any tenderness, nor is there any distention Extremities: LE are without any edema, - Calf tenderness LABORATORY DATA: Please see below. ACTIVITY: [As tolerated]. DISCHARGE PLAN: Follow up with Dr. Sangeetha Stiles within 7 days Remain compliant with treatment plan and medications Return to the ER if you experience any problems DISPOSITION: Home Health Service. DISCHARGE CONDITION: [Stable]. TIME SPENT ON DISCHARGE: Greater than [35] minutes. Vital Signs/I&Os Vital Signs Date Time Temp Pulse Resp B/P (MAP) Pulse Ox O2 Delivery O2 Flow Rate FiO2 07/16/18 09:00 166/76 07/16/18 08:41 60 07/16/18 06:00 96.6 20 96 07/10/18 22:26 Nasal Cannula 2.0 I&O- Last 24 Hours up to 6 AM 07/16/18 06:00 Intake Total 2400 ml Output Total 2250 ml Balance 150 ml Laboratory Data Labs 24H Laboratory Tests 2 07/15/18 16:49: Bedside Glucose (Misc Panel) 238H 07/15/18 20:20: Bedside Glucose (Misc Panel) 278H 07/16/18 07:04: White Blood Count 13.6H, Red Blood Count 4.25, Hemoglobin 13.5, Hematocrit 42.3, Mean Corpuscular Volume 99.5H, Mean Corpuscular Hemoglobin 31.8, Mean Corpuscular Hemoglobin Concent 31.9L, Red Cell Distribution Width 14.1, Platelet Count 330, Lymphocytes # (Auto) , Nucleated Red Blood Cells % (auto) 0.2H, Neutrophils 52, Lymphocytes (Manual) 40, Monocytes (Manual) 5, Myelocytes 1H, Atypical Lymphocytes 2, Platelet Estimate NORMAL, Polychromasia 1+, Anisocytosis 1+, Macrocytosis 1+, Anion Gap 6L, Glomerular Filtration Rate > 60.0, Blood Urea Nitrogen 19H, Creatinine 0.85, Sodium Level 140, Potassium Level 3.6, Ch loride Level 102, Carbon Dioxide Level 32, Calcium Level 8.1L, Magnesium Level 2.2 07/16/18 08:07: Bedside Glucose (Misc Panel) 151H 07/16/18 12:03: Bedside Glucose (Misc Panel) 74L CBC/BMP Laboratory Tests 07/16/18 07:04 Red Blood Count 4.25, Mean Corpuscular Volume 99.5 H, Mean Corpuscular Hemoglobin 31.8, Mean Corpuscular Hemoglobin Concent 31.9 L, Red Cell Distribution Width 14.1, Lymphocytes # (Auto) , Calcium Level 8.1 L FSBS Laboratory Tests Test 07/15/18 16:49 07/15/18 20:20 07/16/18 08:07 07/16/18 12:03 Range/Units Bedside Glucose (Misc Panel) 238 278 151 74 80-115 MG/DL Microbiology Microbiology 07/13/18 Blood Culture - Preliminary, Resulted No Growth after 72 hours. All specime... 07/13/18 Blood Culture - Preliminary, Resulted No Growth after 72 hours. All specime... 07/11/18 Blood Culture - Final, Complete Staphylococcus Epidermidis 07/10/18 Blood Culture - Final, Complete NO GROWTH AFTER 5 DAYS 07/10/18 Respiratory Virus Panel (PCR) (LASHANDA) - Final, Complete Influenza A H1-2009 Discharge Medications Scheduled Amitriptyline HCl (Amitriptyline HCl) 10 Mg Tab, 10 MG PO DAILY, (Reported) Amlodipine Besylate (Amlodipine Besylate) 5 Mg Tab, 5 MG PO DAILY, (Reported) Atorvastatin Calcium (Atorvastatin Calcium) 40 Mg Tab, 40 MG PO DAILY, (Reported) Ferrous Sulfate (Ferrous Sulfate) 325 Mg Tab, 325 MG PO DAILY, (Reported) Fluticasone/Vilanterol (Breo Ellipta 100-25 Mcg/INH) 1 Inh Inh, 1 PUFF PO DAILY, (Reported) Hydrochlorothiazide (Hydrochlorothiazide) 12.5 Mg Tab, 12.5 MG PO DAILY, (Repor eulalia) Insulin Glargine (Lantus) 1 Units/0.01 Ml Susp, 48 UNITS SQ BID, (Reported) Lisinopril (Lisinopril) 5 Mg Tab, 5 MG PO DAILY, (Reported) Metformin Hydrochloride (Metformin HCl ER) 1,000 Mg Tab, 2 TAB PO QPM, (Reported) TAKES AT 1700 Metoprolol Tartrate (Metoprolol Tartrate) 50 Mg Tab, 50 MG PO DAILY, (Reported) Metoprolol Tartrate (Metoprolol Tartrate) 50 Mg Tab, 100 MG PO QPM, (Reported) Montelukast Sodium (Montelukast Sodium) 10 Mg Tab, 10 MG PO QPM, (Reported) TAKES AT 1700 Potassium Chloride (Potassium Chloride ER) 20 Meq Tab, 20 MEQ PO DAILY, (Reported) Prednisone (Prednisone) 10 Mg Tab, 10 MG PO TAPER Take 4 tabs daily x 3 days, then 3 tabs daily x 3 days, then 2 tabs daily x 3 days, then 1 tab daily x 3 days and stop Scheduled PRN (Back & Body Extra Strengt 500-32.5 mg) 1 Tab Tab, 1 TAB PO for BACK PAIN, (Reported) Albuterol Sulfate (Albuterol Sulfate) 2.5 Mg/3 Ml Nebu, 1 VIAL NEB Q4H PRN for WHEEZING, (Reported) Magnesium Chloride (Slow-Mag 71.5-119 mg) 1 Tab Tab, 1 TAB PO DAILY PRN for LEG CRAMPS, (Reported) Allergies Coded Allergies: Penicillins (Verified Allergy, Intermediate, RASH, 08/14/12) Penicillins Cross Reactors (Verified Allergy, Intermediate, RASH, 08/14/12) KAYE WALLS MD Jul 16, 2018 16:27
== END 2018-07-16 13:05 | disposition home health service (06) | DRG 192 ==
LOC: M ED 13:12 → M ED INP 20:24 → M MS5PR 22:38
PROVIDERS: ADMIT Internal Medicine; ATTEND Internal Medicine
DX: J44.1 Chronic obstructive pulmonary disease with (acute) exacerbation (principal); J10.1 Influenza due to other identified influenza virus with other respiratory manifestations; I10 Essential (primary) hypertension; E11.9 Type 2 diabetes mellitus without complications; G47.33 Obstructive sleep apnea (adult) (pediatric); F32.9 Major depressive disorder, single episode, unspecified; Z79.899 Other long term (current) drug therapy; Z88.0 Allergy status to penicillin; E78.00 Pure hypercholesterolemia, unspecified; D64.9 Anemia, unspecified; Z87.891 Personal history of nicotine dependence

== ENCOUNTER 2020-03-24 13:19 | Emergency (ER) | payer MEDICARE, MEDICAID ==
[~2020-03-24] VITALS: Ht 152.4 cm; Wt 85.7 kg
[~2020-03-24 13:19] MED LIST changes: -/RANI15TA PO; +ALBU83IN NEB; +AMIT10TA PO; +AMLO1TAB24 PO; +ATOR40TA75 PO; +BACK500T PO; +BREO1INH PO; +FERR1TAB8 PO; +HYDR12.55 PO; +INSULANT SQ; +LISI-542 PO; -LISI20TA PO; +LISI20TA35 PO; +METF-415 PO; +MONT10TA4 PO; +POTA20TA6 PO; +PRED10TA2 PO; +RANI1TAB17 PO; +SIMV20TA22 PO; +SLOWTAB2 PO
[2020-03-24] MEDS ORDERED: predniSONE 20 MG TAB PO ONE (13:45)
[2020-03-24] MEDS: COMBIVENT RESPIMAT 100-20MCG INHALER 4GM INH SCH ×3 (14:04→14:31)
[2020-03-24 14:08] LABS: BASO % 0.4 % (0.0-1.0); EOS # 0.4 10^3/uL (0.0-0.5); EOS % 4.1 % (0.0-3.0); HEMATOCRIT 41.4 % (36.0-47.0); LYMPH # 2.6 10^3/uL (1.5-5.0); LYMPH % 28.4 % (24.0-44.0); MEAN CORPUSCULAR HEMOGLOBIN 31.9 pg (27.0-33.0); MEAN CORPUSCULAR HGB CONC 31.4 g/dl (32.0-36.5); MEAN CORPUSCULAR VOLUME 101.7 fl (80.0-96.0); MONO # 0.7 10^3/uL (0.0-0.8); MONO % 7.7 % (0.0-5.0); NEUTROPHILS # 5.3 10^3/uL (1.5-8.5); NEUTROPHILS % 59.1 % (36.0-66.0); PLATELET COUNT, AUTOMATED 322 10^3/uL (150-450); RED BLOOD COUNT 4.07 10^6/uL (4.00-5.40)
[2020-03-24 14:19] LABS: VENOUS BASE EXCESS 1.2 (-2.0-2.0); VENOUS HCO3 27.5 MEQ/L (23.0-27.0); VENOUS O2 SATURATION 84.7 % (60.0-80.0); VENOUS PARTIAL PRESSURE CO2 50.6 mmHg (38.0-50.0); VENOUS PARTIAL PRESSURE O2 48.3 mmHg (30.0-50.0); VENOUS PH 7.353 UNITS (7.330-7.430); VENOUS STANDARD HCO3 25.2 MEQ/L; VENOUS TOTAL CO2 29.1 MEQ/L (24.0-28.0)
--- NOTE | 2020-03-24 14:26 | REP ---
INDICATION: DYSPNEA/COUGH. COMPARISON: July 11, 2018.. TECHNIQUE: Single sitting AP portable exam. FINDINGS: Monitoring electrodes are seen. The lungs are well inflated and free of infiltrate. Pleural angles are sharp. Heart size is normal. The aorta is somewhat tortuous as before. Pulmonary vasculature is not increased. No significant bony abnormality is appreciated. IMPRESSION: No active cardiopulmonary disease. <Electronically signed by Malcolm Larson > 03/24/20 [id number]
[2020-03-24 14:44] LABS: ALBUMIN 3.7 GM/DL (3.2-5.2); BILIRUBIN,DIRECT 0.1 MG/DL (0.0-0.2); BILIRUBIN,TOTAL 0.4 MG/DL (0.2-1.0); THYROID STIMULATING HORMONE 1.29 uIU/ML (0.358-3.740); TOTAL PROTEIN 6.7 GM/DL (6.4-8.2)
[2020-03-24 16:14] VITALS: O2SAT 94
[2020-03-24] MEDS ORDERED: PRED20TA PO (16:24)
[2020-03-24] MEDS ORDERED: TESS100C PO (16:25)
--- NOTE | 2020-03-24 16:50 | ECGEPIP ---
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
[2020-03-24 17:16] VITALS: BP 122/72
[2020-03-24 17:19] LABS: PROTHROMBIN TIME 13.4 SECONDS (12.5-14.3)
== END 2020-03-24 17:28 | disposition home or self-care (01) ==
LOC: M ED 13:19
DX: J44.9 Chronic obstructive pulmonary disease, unspecified (principal); B34.8 Other viral infections of unspecified site; E11.9 Type 2 diabetes mellitus without complications; I10 Essential (primary) hypertension; E78.5 Hyperlipidemia, unspecified; D64.9 Anemia, unspecified; Z87.891 Personal history of nicotine dependence; Z88.0 Allergy status to penicillin; Z79.51 Long term (current) use of inhaled steroids; Z79.899 Other long term (current) drug therapy

== ENCOUNTER 2021-02-10 14:24 | Emergency (ER) | payer MEDICARE, MEDICAID ==
[~2021-02-10] VITALS: Ht 152.4 cm; Wt 86.3 kg
[~2021-02-10 14:24] MED LIST changes: -AMIT10TA PO; +AMIT10TA7 PO; -GLYB5TA PO; +GLYB5TAB6 PO; -LISI-538 PO; -LISI-542 PO; +LISI-898 PO; +LISI20TA33 PO; +MONT10TA10 PO; -MONT10TA4 PO; +PRED20TA PO; +TESS100C PO
[2021-02-10 14:56] LABS: BASO # 0.1 10^3/uL (0.0-0.2); BASO % 0.4 % (0.0-1.0); EOS # 0.1 10^3/uL (0.0-0.5); EOS % 0.9 % (0.0-3.0); HEMATOCRIT 43.1 % (36.0-47.0); HEMOGLOBIN 13.8 g/dl (12.0-15.5); LYMPH # 1.8 10^3/uL (1.5-5.0); LYMPH % 12.9 % (24.0-44.0); MEAN CORPUSCULAR HEMOGLOBIN 31.9 pg (27.0-33.0); MEAN CORPUSCULAR VOLUME 99.8 fl (80.0-96.0); MONO # 0.6 10^3/uL (0.0-0.8); MONO % 4.6 % (2.0-8.0); NEUTROPHILS # 11.3 10^3/uL (1.5-8.5); NEUTROPHILS % 80.6 % (36.0-66.0); PLATELET COUNT, AUTOMATED 316 10^3/uL (150-450); RED BLOOD COUNT 4.32 10^6/uL (4.00-5.40)
[2021-02-10 15:36] LABS: ACETAMINOPHEN LEVEL < 2.0 UG/ML (10.0-30.0); ALBUMIN 3.6 GM/DL (3.2-5.2); ALT/SGPT 21 U/L (12-78); BILIRUBIN,DIRECT 0.1 MG/DL (0.0-0.2); BILIRUBIN,TOTAL 0.4 MG/DL (0.2-1.0); BLOOD UREA NITROGEN 14 MG/DL (7-18); CALCIUM LEVEL 8.8 MG/DL (8.8-10.2); CARBON DIOXIDE LEVEL 23 MEQ/L (21-32); CHLORIDE LEVEL 103 MEQ/L (98-107); CREATININE FOR GFR 0.98 MG/DL (0.55-1.30); ETHYL ALCOHOL (ETHANOL) 0.003 % (0.000-0.010); GLOMERULAR FILTRATION RATE 59.7 (>39); GLUCOSE, FASTING 248 MG/DL (70-100); POTASSIUM SERUM 4.6 MEQ/L (3.5-5.1); SALICYLATE LEVEL < 1.7 MG/DL (5.0-30.0); SODIUM LEVEL 138 MEQ/L (136-145); TOTAL PROTEIN 7.2 GM/DL (6.4-8.2)
[2021-02-10 16:17] LABS: AMPHETAMINES LEVEL URINE NEGATIVE (NEGATIVE); BARBITURATES URINE NEGATIVE (NEGATIVE); BENZODIAZEPINES URINE NEGATIVE (NEGATIVE); CANNABINOIDS URINE NEGATIVE (NEGATIVE); COCAINE METABOLITE URINE NEGATIVE (NEGATIVE); METHADONE URINE NEGATIVE (NEGATIVE); OPIATES URINE NEGATIVE (NEGATIVE); PHENCYCLIDINE URINE NEGATIVE (NEGATIVE)
[2021-02-10] MEDS ORDERED: ACETAMINOPHEN 500 MG TAB PO ONE (18:10)
[2021-02-10 19:26] LABS: RSV AMPLIFICATION NEGATIVE (NEGATIVE)
[2021-02-10] MEDS ORDERED: LEVEMIR (INSULIN DETEMIR) 1 UNITS/0.01ML SC ONE (19:35)
[2021-02-10] MEDS ORDERED: metFORMIN XR 500MG TAB *GLUCOPHAGE XR PO ONE (19:35)
[2021-02-10] MEDS ORDERED: MONTELUKAST 10 MG TAB PO ONE (19:35)
[2021-02-10] MEDS ORDERED: METOPROLOL TARTRATE 100 MG TAB PO ONE (19:35)
--- NOTE | 2021-02-11 07:50 | ECGEPIP ---
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
[2021-02-11] MEDS ORDERED: ALBU8.5H INH (11:27)
[2021-02-11] MEDS ORDERED: METF-839 PO (11:27)
[2021-02-11] MEDS ORDERED: METF500T13 PO (11:27)
[2021-02-11] MEDS ORDERED: BENE1POW5 PO (11:44)
[2021-02-11] MEDS ORDERED: FERR325T19 PO (11:44)
[2021-02-11] MEDS ORDERED: SPIR-10 PO (11:44)
[2021-02-11] MEDS ORDERED: HOME MED LIST COMPLETE! XX SCH (11:50)
[2021-02-11] MEDS ORDERED: LEVEMIR (INSULIN DETEMIR) 1 UNITS/0.01ML SC ONE (12:45)
[2021-02-11] MEDS ORDERED: amLODIPine 5 MG TAB PO ONE (12:45)
[2021-02-11] MEDS ORDERED: METOPROLOL TART 50 MG TAB PO ONE (12:45)
[2021-02-11] MEDS ORDERED: AMITRIPTYLINE 10MG TABLET PO SCH (12:45)
[2021-02-11] MEDS ORDERED: hydroCHLOROthiazide 12.5 MG CAPSULE PO ONE (12:45)
[2021-02-11] MEDS ORDERED: lisinopriL 5 MG TAB PO ONE (12:45)
[2021-02-11] MEDS ORDERED: metFORMIN (GLUCOPHAGE) 1000 MG TABLET PO ONE (12:45)
[2021-02-11] MEDS ORDERED: SPIRONOLACTONE 12.5MG PER 1/2 TABLET PO SCH (12:50)
[2021-02-11 13:20] VITALS: BP 198/84
[2021-02-11 14:14] VITALS: BP 173/79
== END 2021-02-11 14:26 ==
LOC: M ED 14:24
DX: R45.851 Suicidal ideations (principal); F32.9 Major depressive disorder, single episode, unspecified; E11.9 Type 2 diabetes mellitus without complications; K21.9 Gastro-esophageal reflux disease without esophagitis; E78.5 Hyperlipidemia, unspecified; Z88.0 Allergy status to penicillin; Z79.899 Other long term (current) drug therapy

== ENCOUNTER 2021-11-23 19:23 | Emergency (ER) | payer MEDICARE, OTHER ==
[~2021-11-23] VITALS: Ht 152.4 cm; Wt 92.0 kg
[~2021-11-23 19:23] MED LIST changes: +ALBU2.5V10 NEB; +ALBU8.5H INH; -ALBU83IN NEB; +BENE1POW5 PO; +FERR325T19 PO; -LISI-898 PO; +LISI5TAB11 PO; +METF-839 PO; +METF500T13 PO; -MONT10TA10 PO; +MONT10TA97 PO; +POTA-151 PO; -POTA20TA6 PO; +SPIR-10 PO
[2021-11-23] MEDS ORDERED: LEXA5TAB13 PO (19:55)
[2021-11-23] MEDS ORDERED: PRIM50TA6 PO (19:55)
[2021-11-23] MEDS ORDERED: ONDANSETRON 4MG 2ML VIAL IV ONE (20:10)
[2021-11-23] MEDS ORDERED: KETAMINE HCL 200 MG/20 ML VIAL IV ONE (21:00)
[2021-11-23] MEDS ORDERED: propofoL 200 MG/20 ML VIAL IV.PROC PRN (21:00)
[2021-11-23] MEDS ORDERED: NS 1,000 ML IV SCH (21:00)
[2021-11-23] MEDS: MORPHINE 4 MG/ML 1ML VIAL/SYRINGE IV PRN ×2 (21:04→21:56)
[2021-11-23] MEDS ORDERED: ATROPINE SULF 0.4 MG/ML 1ML VIAL (J0461) As Ordered ONE (21:48)
[2021-11-23] MEDS ORDERED: ATROPINE SULF 0.4 MG/ML 1ML VIAL (J0461) IV STA (21:55)
[2021-11-23 23:10] VITALS: BP 137/62
== END 2021-11-23 23:42 | disposition home or self-care (01) ==
LOC: M ED 19:23 → EDBD 19:23 → M ED 23:42
DX: S53.105A Unspecified dislocation of left ulnohumeral joint, initial encounter (principal); W01.0XXA Fall on same level from slipping, tripping and stumbling without subsequent striking against object, initial encounter; J44.9 Chronic obstructive pulmonary disease, unspecified; E11.9 Type 2 diabetes mellitus without complications; Z88.0 Allergy status to penicillin; Z79.811 Long term (current) use of aromatase inhibitors; Z79.4 Long term (current) use of insulin; Z79.899 Other long term (current) drug therapy; Y92.830 Public park as the place of occurrence of the external cause; Y93.9 Activity, unspecified; Y99.9 Unspecified external cause status
CPT/HCPCS: 73060; 73070; 73080; 73090; 93041; 94760; 96361; 96374; 96375; 96376; 99291; J0461; J2270; J2405

== ENCOUNTER → 2021-11-25 | Outpatient (CLI) | payer MEDICARE, OTHER, MEDICAID ==
[~2021-11-25] MED LIST changes: +LEXA5TAB13 PO; +PRIM50TA6 PO
== END ==
LOC: M RAD 14:56
PROVIDERS: ATTEND Physician Assistant Surgical
DX: S42.454A Nondisplaced fracture of lateral condyle of right humerus, initial encounter for closed fracture (principal); W18.30XA Fall on same level, unspecified, initial encounter; Y92.009 Unspecified place in unspecified non-institutional (private) residence as the place of occurrence of the external cause

== ENCOUNTER 2022-04-06 07:45 | Outpatient (RCR) | payer MEDICARE, MEDICAID ==
[~2022-04-06 07:45] MED LIST changes: +INSULANT SC; -INSULANT SQ
[2022-04-13] MEDS ORDERED: BAYE500T2 PO (00:54)
[2022-04-13] MEDS ORDERED: AMLO1TAB25 PO (00:54)
[2022-04-13] MEDS ORDERED: METO50TA7 PO (00:54)
[2022-04-13] MEDS ORDERED: METF-877 PO (00:54)
[2022-04-13] MEDS ORDERED: ACET650T61 PO (00:54)
[2022-04-13] MEDS ORDERED: COMBAER6 INH (00:56)
[2022-04-14] MEDS ORDERED: TREL1AER PO (11:24)
[2022-04-14] MEDS ORDERED: BREO1INH PO (11:24)
[2022-04-14] MEDS ORDERED: AZIT500T5 PO (11:24)
[2022-04-14] MEDS ORDERED: PRED10TA2 PO (11:24)
[2022-04-14] MEDS ORDERED: PRED20TA PO (11:26)
[2022-04-14] MEDS ORDERED: ALBU8.5H INH (11:26)
== END 2022-04-13 ==
LOC: M PT 07:45
PROVIDERS: ATTEND Student in an Organized Health Care Education/Training Program
DX: S42.402D Unspecified fracture of lower end of left humerus, subsequent encounter for fracture with routine healing (principal)

== ENCOUNTER 2022-04-12 19:52 | Inpatient (IN) | payer MEDICARE, MEDICAID ==
[~2022-04-12] VITALS: Ht 154.9 cm; Wt 89.8 kg
[2022-04-12] MEDS ORDERED: COMBIVENT RESPIMAT 100-20MCG INHALER 4GM INH STA (21:18)
[2022-04-12] MEDS ORDERED: methylPREDNISolone 125MG 2ML VIAL IV ONE (21:20)
[2022-04-12 21:58] LABS: BASO % 0.2 % (0.0-1.0); EOS # 0.2 10^3/uL (0.0-0.5); HEMATOCRIT 41.7 % (36.0-47.0); HEMOGLOBIN 12.9 g/dl (12.0-15.5); LYMPH # 2.8 10^3/uL (1.5-5.0); LYMPH % 32.8 % (24.0-44.0); MEAN CORPUSCULAR HEMOGLOBIN 32.1 pg (27.0-33.0); MEAN CORPUSCULAR HGB CONC 30.9 g/dl (32.0-36.5); MEAN CORPUSCULAR VOLUME 103.7 fl (80.0-96.0); MONO # 0.7 10^3/uL (0.0-0.8); MONO % 8.2 % (2.0-8.0); NEUTROPHILS # 4.8 10^3/uL (1.5-8.5); NEUTROPHILS % 56.6 % (36.0-66.0); PLATELET COUNT, AUTOMATED 265 10^3/uL (150-450); RED BLOOD COUNT 4.02 10^6/uL (4.00-5.40); WHITE BLOOD COUNT 8.6 10^3/uL (4.0-10.0)
[2022-04-12 22:09] LABS: VENOUS BASE EXCESS 1.9 (-2.0-2.0); VENOUS HCO3 27.6 MEQ/L (23.0-27.0); VENOUS O2 SATURATION 98.4 % (60.0-80.0); VENOUS PARTIAL PRESSURE CO2 47.2 mmHg (38.0-50.0); VENOUS PARTIAL PRESSURE O2 132.4 mmHg (30.0-50.0); VENOUS PH 7.385 UNITS (7.330-7.430); VENOUS STANDARD HCO3 26.2 MEQ/L; VENOUS TOTAL CO2 29.1 MEQ/L (24.0-28.0)
[2022-04-12] MEDS ORDERED: IPRATROPIUM 0.5MG/ALBUTEROL 2.5MG INH SOL UD 3ML (DUONEB) NEB ONE (22:30)
[2022-04-12 22:38] LABS: CARBON DIOXIDE LEVEL 30 MMOL/L (20-31); CHLORIDE LEVEL 97 MMOL/L (98-107); SODIUM LEVEL 137 MMOL/L (136-145)
[2022-04-12 22:39] LABS: ALBUMIN 3.4 G/DL (3.2-5.2)
[2022-04-12 22:43] LABS: CALCIUM LEVEL 8.7 MG/DL (8.3-10.6); GLUCOSE, FASTING 285 MG/DL (74-106)
[2022-04-12 22:44] LABS: BLOOD UREA NITROGEN 13 MG/DL (9-23); CK-MB VALUE MASS 2.5 NG/ML (<3.6)
[2022-04-12 22:45] LABS: ALKALINE PHOSPHATASE 100 U/L (46-116)
[2022-04-12 22:46] LABS: ALT/SGPT 19 U/L (7.0-40); AST/SGOT 24 U/L (<34); BILIRUBIN,DIRECT < 0.1 MG/DL (<0.4); BILIRUBIN,TOTAL 0.2 MG/DL (0.3-1.2); CPK CREATINE PHOSPHOKINASE 96 U/L (34-145); CREATININE FOR GFR 0.54 MG/DL (0.55-1.30); GLOMERULAR FILTRATION RATE > 60.0 (>39); TOTAL PROTEIN 6.3 G/DL (5.7-8.2)
[2022-04-12 22:47] LABS: THYROID STIMULATING HORMONE 1.616 uIU/ML (0.55-4.78)
[2022-04-12 22:48] LABS: THYROXINE (T4) 6.6 UG/DL (4.5-10.9)
[2022-04-13] MEDS ORDERED: ACET650T61 PO (00:54)
[2022-04-13] MEDS ORDERED: METF-877 PO (00:54)
[2022-04-13] MEDS ORDERED: METO50TA7 PO (00:54)
[2022-04-13] MEDS ORDERED: AMLO1TAB25 PO (00:54)
[2022-04-13] MEDS ORDERED: BAYE500T2 PO (00:54)
[2022-04-13] MEDS ORDERED: HOME MED LIST COMPLETE! XX SCH (00:55)
[2022-04-13] MEDS ORDERED: COMBAER6 INH (00:56)
[2022-04-13] MEDS ORDERED: GLUCAGON INJ 1MG VIAL SC PRN (02:15)
[2022-04-13] MEDS ORDERED: DEXTROSE 50% 50 ML SYRINGE IV PRN (02:15)
[2022-04-13] MEDS ORDERED: ALBUTEROL 90 MCG/ACT 8GM HFA INHALER INH PRN ×2 (02:15→03:10)
[2022-04-13] MEDS ORDERED: GLUCOSE 4GM CHEW TABLET PO PRN (02:15)
[2022-04-13] MEDS: AZITHROMYCIN 250MG TABLET PO SCH (03:14)
[2022-04-13] MEDS: PRIMIDONE 50MG TAB PO SCH ×2 (03:24→20:24)
[2022-04-13] MEDS: ACETAMINOPHEN 650MG ER TAB (TYLENOL ARTHRITIS) PO PRN ×2 (03:24→16:25)
[2022-04-13] MEDS: IPRATROPIUM 0.5MG/ALBUTEROL 2.5MG INH SOL UD 3ML (DUONEB) NEB SCH ×4 (03:46→20:00)
[2022-04-13] MEDS: SYMBICORT 160/4.5MCG INHALER 6GM INH SCH ×2 (08:18→20:13)
[2022-04-13 08:19] VITALS: O2SAT 94
[2022-04-13] MEDS ORDERED: LEVEMIR (INSULIN DETEMIR) 1 UNITS/0.01ML SC SCH (09:00)
[2022-04-13] MEDS: POTASSIUM CHLORIDE 10MEQ SR TABLET PO SCH (09:08)
[2022-04-13] MEDS: FERROUS SULFATE 325MG TAB PO SCH (09:08)
[2022-04-13] MEDS: SPIRONOLACTONE 12.5MG PER 1/2 TABLET PO SCH (09:08)
[2022-04-13] MEDS: hydroCHLOROthiazide 12.5 MG CAPSULE PO SCH (09:08)
[2022-04-13] MEDS: ENOXAPARIN 40MG/0.4ML SYRINGE (J1650 PER 10MG) SC SCH (09:08)
[2022-04-13] MEDS: lisinopriL 5 MG TAB PO SCH (09:09)
[2022-04-13] MEDS: predniSONE 20 MG TAB PO SCH (09:09)
[2022-04-13] MEDS: ATORVASTATIN 20 MG TAB PO SCH (09:09)
[2022-04-13] MEDS: METOPROLOL TART 50 MG TAB PO SCH (09:09)
[2022-04-13] MEDS: INSULIN LISPRO (NovoLOG) PER UNIT SC SCH ×3 (09:10→18:26)
[2022-04-13] MEDS ORDERED: ISOVUE-370 76% 100ML VIAL As Ordered ONE (09:13)
[2022-04-13] MEDS: LEVEMIR (INSULIN DETEMIR) 1 UNITS/0.01ML SC SCH ×2 (09:17→20:23)
[2022-04-13 09:30] LABS: BASO % 0.2 % (0.0-1.0); HEMATOCRIT 39.5 % (36.0-47.0); HEMOGLOBIN 12.2 g/dl (12.0-15.5); LYMPH # 1.2 10^3/uL (1.5-5.0); LYMPH % 20.5 % (24.0-44.0); MEAN CORPUSCULAR HEMOGLOBIN 31.8 pg (27.0-33.0); MEAN CORPUSCULAR HGB CONC 30.9 g/dl (32.0-36.5); MEAN CORPUSCULAR VOLUME 102.9 fl (80.0-96.0); MONO # 0.4 10^3/uL (0.0-0.8); MONO % 6.5 % (2.0-8.0); NEUTROPHILS # 4.2 10^3/uL (1.5-8.5); NEUTROPHILS % 72.6 % (36.0-66.0); PLATELET COUNT, AUTOMATED 280 10^3/uL (150-450); RED BLOOD COUNT 3.84 10^6/uL (4.00-5.40); WHITE BLOOD COUNT 5.8 10^3/uL (4.0-10.0)
[2022-04-13 09:59] LABS: CHLORIDE LEVEL 96 MMOL/L (98-107); POTASSIUM SERUM 4.8 MMOL/L (3.5-5.1); SODIUM LEVEL 134 MMOL/L (136-145)
[2022-04-13 10:00] LABS: CARBON DIOXIDE LEVEL 30 MMOL/L (20-31)
[2022-04-13 10:06] LABS: BLOOD UREA NITROGEN 17 MG/DL (9-23); CALCIUM LEVEL 8.6 MG/DL (8.3-10.6); GLUCOSE, FASTING 392 MG/DL (74-106)
[2022-04-13 10:08] LABS: CREATININE FOR GFR 0.52 MG/DL (0.55-1.30); GLOMERULAR FILTRATION RATE > 60.0 (>39)
[2022-04-13 13:31] VITALS: O2SAT 94
[2022-04-13 14:40] VITALS: BP 177/77
[2022-04-13 20:00] VITALS: BP 160/73
[2022-04-13] MEDS ORDERED: METOPROLOL TARTRATE 100MG TAB PO SCH (21:00)
[2022-04-13] MEDS ORDERED: MONTELUKAST 10 MG TAB PO SCH (21:00)
[2022-04-13] MEDS ORDERED: INSULIN LISPRO (NovoLOG) PER UNIT SC SCH (21:00)
[2022-04-14] MEDS: IPRATROPIUM 0.5MG/ALBUTEROL 2.5MG INH SOL UD 3ML (DUONEB) NEB SCH (00:01)
[2022-04-14] MEDS: ACETAMINOPHEN 650MG ER TAB (TYLENOL ARTHRITIS) PO PRN ×2 (00:54→11:00)
[2022-04-14 06:00] VITALS: BP 138/74
[2022-04-14] MEDS: SYMBICORT 160/4.5MCG INHALER 6GM INH SCH (06:09)
[2022-04-14] MEDS: hydroCHLOROthiazide 12.5 MG CAPSULE PO SCH (08:02)
[2022-04-14] MEDS: POTASSIUM CHLORIDE 10MEQ SR TABLET PO SCH (08:02)
[2022-04-14] MEDS: FERROUS SULFATE 325MG TAB PO SCH (08:02)
[2022-04-14] MEDS: AZITHROMYCIN 250MG TABLET PO SCH (08:02)
[2022-04-14] MEDS: predniSONE 20 MG TAB PO SCH (08:03)
[2022-04-14] MEDS: SPIRONOLACTONE 12.5MG PER 1/2 TABLET PO SCH (08:03)
[2022-04-14] MEDS: lisinopriL 5 MG TAB PO SCH (08:03)
[2022-04-14] MEDS: ATORVASTATIN 20 MG TAB PO SCH (08:03)
[2022-04-14 08:04] VITALS: BP 138/74
[2022-04-14] MEDS: ENOXAPARIN 40MG/0.4ML SYRINGE (J1650 PER 10MG) SC SCH (08:04)
[2022-04-14] MEDS: METOPROLOL TART 50 MG TAB PO SCH (08:04)
[2022-04-14] MEDS: LEVEMIR (INSULIN DETEMIR) 1 UNITS/0.01ML SC SCH (08:07)
[2022-04-14] MEDS: INSULIN LISPRO (NovoLOG) PER UNIT SC SCH ×2 (08:08→12:48)
[2022-04-14 08:20] VITALS: BP 116/68
[2022-04-14] MEDS ORDERED: FLUBLOK(EGG FREE)(QUAD)INFLUENZA VACC 0.5ML SYRINGE 18YRS & OLDER IM.IMMUN ONE (09:00)
[2022-04-14 10:44] VITALS: O2SAT 90
[2022-04-14] MEDS ORDERED: PRED10TA2 PO (11:24)
[2022-04-14] MEDS ORDERED: AZIT500T5 PO (11:24)
[2022-04-14] MEDS ORDERED: BREO1INH PO (11:24)
[2022-04-14] MEDS ORDERED: TREL1AER PO (11:24)
[2022-04-14] MEDS ORDERED: ALBU8.5H INH (11:26)
[2022-04-14] MEDS ORDERED: PRED20TA PO (11:26)
== END 2022-04-14 14:15 | disposition home health service (06) | DRG 191 ==
LOC: M ED 19:52 → M ED INP 23:53 → ENRESERV 04-13 14:18 → M MS5PR 04-13 14:40
PROVIDERS: ADMIT Family Medicine; ATTEND Internal Medicine
DX: J44.1 Chronic obstructive pulmonary disease with (acute) exacerbation (principal); J45.901 Unspecified asthma with (acute) exacerbation; I10 Essential (primary) hypertension; K21.9 Gastro-esophageal reflux disease without esophagitis; E11.42 Type 2 diabetes mellitus with diabetic polyneuropathy; Z88.0 Allergy status to penicillin; Z79.899 Other long term (current) drug therapy; Z79.4 Long term (current) use of insulin; G47.33 Obstructive sleep apnea (adult) (pediatric); M19.90 Unspecified osteoarthritis, unspecified site; F32.A Depression, unspecified; E66.9 Obesity, unspecified; Z68.37 Body mass index [BMI] 37.0-37.9, adult; N39.3 Stress incontinence (female) (male)

== ENCOUNTER 2022-07-11 10:00 | Outpatient (RCR) | payer MEDICARE, MEDICAID ==
[~2022-07-11 10:00] MED LIST changes: +ACET650T61 PO; +AMLO1TAB25 PO; +AZIT500T5 PO; +BAYE500T2 PO; +COMBAER6 INH; +METF-877 PO; +TREL1AER PO
== END 2022-07-12 ==
LOC: M OT 10:00
PROVIDERS: ATTEND Student in an Organized Health Care Education/Training Program
DX: S42.402D Unspecified fracture of lower end of left humerus, subsequent encounter for fracture with routine healing (principal)

== ENCOUNTER 2022-07-14 13:23 | Outpatient (RCR) | payer MEDICARE, MEDICAID | END 2022-08-12 | LOC: M OT 13:23 | PROVIDERS: ATTEND Student in an Organized Health Care Education/Training Program | DX: S42.402D Unspecified fracture of lower end of left humerus, subsequent encounter for fracture with routine healing (principal) ==

== ENCOUNTER → 2022-10-11 | Outpatient (CLI) | payer MEDICARE, MEDICAID | LOC: M WHC 09:02 | PROVIDERS: ATTEND Internal Medicine | DX: N63.32 Unspecified lump in axillary tail of the left breast (principal); D48.1 Neoplasm of uncertain behavior of connective and other soft tissue | CPT/HCPCS: 77066; G0279 ==

== ENCOUNTER → 2022-12-14 | Outpatient (CLI) | payer MEDICARE, MEDICAID | LOC: M SLEEP 20:00 | PROVIDERS: ATTEND Nurse Practitioner Adult Health | DX: G47.33 Obstructive sleep apnea (adult) (pediatric) (principal) ==

== ENCOUNTER → 2022-12-23 | Outpatient (CLI) | payer MEDICARE, MEDICAID | LOC: M RAD 14:17 | PROVIDERS: ATTEND Internal Medicine | DX: R30.0 Dysuria (principal) ==

== ENCOUNTER 2023-03-04 20:48 | Emergency (ER) | payer MEDICARE, MEDICAID ==
[2023-03-04 21:27] LABS: BASO % 0.3 % (0.0-1.0); EOS # 0.2 10^3/uL (0.0-0.5); EOS % 1.9 % (0.0-3.0); HEMATOCRIT 41.3 % (36.0-47.0); HEMOGLOBIN 12.9 g/dl (12.0-15.5); LYMPH % 25.9 % (24.0-44.0); MEAN CORPUSCULAR HEMOGLOBIN 31.6 pg (27.0-33.0); MEAN CORPUSCULAR HGB CONC 31.2 g/dl (32.0-36.5); MEAN CORPUSCULAR VOLUME 101.2 fl (80.0-96.0); MONO # 0.7 10^3/uL (0.0-0.8); MONO % 5.8 % (2.0-8.0); NEUTROPHILS # 7.6 10^3/uL (1.5-8.5); NEUTROPHILS % 65.8 % (36.0-66.0); PLATELET COUNT, AUTOMATED 283 10^3/uL (150-450); RED BLOOD COUNT 4.08 10^6/uL (4.00-5.40); WHITE BLOOD COUNT 11.6 10^3/uL (4.0-10.0)
[2023-03-04] MEDS ORDERED: ISOVUE-370 76% 100ML VIAL As Ordered ONE (21:30)
[2023-03-04 21:48] LABS: INR 1.08; PROTHROMBIN TIME 13.7 SECONDS (12.5-14.5)
[2023-03-04 21:49] LABS: PARTIAL THROMBOPLASTIN TIME 31.6 SECONDS (24.8-34.2)
[2023-03-04 22:00] LABS: RSV AMPLIFICATION NEGATIVE (NEGATIVE)
[2023-03-04 22:23] VITALS: BP 150/90; TEMP 98.1; O2SAT 92
[2023-03-04] MEDS ORDERED: methylPREDNISolone 125MG 2ML VIAL IV ONE (22:40)
[2023-03-04] MEDS ORDERED: ACETAMINOPHEN 325 MG TAB PO ONE (22:40)
[2023-03-04] MEDS ORDERED: PRED10TA2 PO (23:34)
[2023-03-05 09:31] LABS: ALBUMIN 4.1 G/DL (3.9-5.0); ALKALINE PHOSPHATASE 142 U/L (35-104); ALT/SGPT 11 U/L (1-33); AST/SGOT 19 U/L (5-40); BILIRUBIN,DIRECT < 0.2 MG/DL (0.1-0.4); BILIRUBIN,TOTAL < 0.7 MG/DL (0.2-1.3); TOTAL PROTEIN 6.8 G/DL (6.3-8.2)
[2023-03-05 09:32] LABS: FREE T4 1.04 NG/DL (0.93-1.70); THYROID STIMULATING HORMONE 2.05 UIU/ML (0.47-5.01)
== END 2023-03-04 23:50 | disposition home or self-care (01) ==
LOC: M ED 20:48
DX: J44.1 Chronic obstructive pulmonary disease with (acute) exacerbation (principal); R07.89 Other chest pain; I49.1 Atrial premature depolarization; E11.9 Type 2 diabetes mellitus without complications; K21.9 Gastro-esophageal reflux disease without esophagitis; E78.5 Hyperlipidemia, unspecified; Z88.0 Allergy status to penicillin; Z79.52 Long term (current) use of systemic steroids; Z79.4 Long term (current) use of insulin; Z79.02 Long term (current) use of antithrombotics/antiplatelets; Z79.899 Other long term (current) drug therapy
CPT/HCPCS: 71045; 71275; 80047; 80076; 83605; 84439; 84443; 84484; 85025; 85610; 85730; 87040; 87631; 93005; 93041; 94760; 96374; 99284; J2930; Q9967

== ENCOUNTER → 2023-04-07 | Outpatient (CLI) | payer MEDICARE, MEDICAID | LOC: M SLEEP 20:00 | PROVIDERS: ATTEND Nurse Practitioner Adult Health | DX: G47.33 Obstructive sleep apnea (adult) (pediatric) (principal) ==

== ENCOUNTER 2023-04-21 13:41 | Emergency (ER) | payer MEDICARE, MEDICAID ==
[~2023-04-21] VITALS: Ht 157.5 cm; Wt 81.8 kg
[2023-04-21 13:41] VITALS: BP 152/97; TEMP 97.7; O2SAT 93
[2023-04-21 16:11] LABS: RSV AMPLIFICATION NEGATIVE (NEGATIVE)
[2023-04-21] MEDS ORDERED: BENZ200C70 PO (17:32)
[2023-04-21] MEDS ORDERED: PRED20TA PO (17:32)
== END 2023-04-21 17:57 | disposition home or self-care (01) ==
LOC: M ED 13:41
DX: J44.1 Chronic obstructive pulmonary disease with (acute) exacerbation (principal); J06.9 Acute upper respiratory infection, unspecified; E11.9 Type 2 diabetes mellitus without complications; I10 Essential (primary) hypertension; J45.909 Unspecified asthma, uncomplicated; F32.A Depression, unspecified; K21.9 Gastro-esophageal reflux disease without esophagitis; M54.50 Low back pain, unspecified; Z88.0 Allergy status to penicillin; Z87.442 Personal history of urinary calculi; Z79.52 Long term (current) use of systemic steroids; Z79.82 Long term (current) use of aspirin; Z79.02 Long term (current) use of antithrombotics/antiplatelets; Z79.899 Other long term (current) drug therapy

== ENCOUNTER 2023-06-07 12:12 | Inpatient (IN) | payer MEDICARE, MEDICAID ==
[~2023-06-07] VITALS: Ht 152.4 cm; Wt 89.3 kg
[~2023-06-07 12:12] MED LIST changes: +BENZ200C70 PO
[2023-06-07 13:05] LABS: BASO % 0.3 % (0.0-1.0); EOS # 0.1 10^3/uL (0.0-0.5); EOS % 1.4 % (0.0-3.0); HEMATOCRIT 40.8 % (36.0-47.0); HEMOGLOBIN 12.7 g/dl (12.0-15.5); LYMPH # 2.6 10^3/uL (1.5-5.0); LYMPH % 29.1 % (24.0-44.0); MEAN CORPUSCULAR HEMOGLOBIN 32.4 pg (27.0-33.0); MEAN CORPUSCULAR HGB CONC 31.1 g/dl (32.0-36.5); MEAN CORPUSCULAR VOLUME 104.1 fl (80.0-96.0); MONO # 0.6 10^3/uL (0.0-0.8); MONO % 6.9 % (2.0-8.0); NEUTROPHILS # 5.6 10^3/uL (1.5-8.5); NEUTROPHILS % 62.1 % (36.0-66.0); PLATELET COUNT, AUTOMATED 246 10^3/uL (150-450); RED BLOOD COUNT 3.92 10^6/uL (4.00-5.40)
[2023-06-07 13:35] LABS: LIPASE 46 U/L (12-53)
[2023-06-07 13:36] LABS: CPK CREATINE PHOSPHOKINASE 41 U/L (34-145)
[2023-06-07 13:37] LABS: ALBUMIN 3.3 G/DL (3.2-5.2); ALKALINE PHOSPHATASE 109 U/L (46-116); ALT/SGPT 17 U/L (7.0-40); AST/SGOT 11 U/L (<34); BILIRUBIN,DIRECT 0.1 MG/DL (<0.4); BILIRUBIN,TOTAL 0.3 MG/DL (0.3-1.2); BLOOD UREA NITROGEN 16 MG/DL (9-23); CALCIUM LEVEL 9.1 MG/DL (8.3-10.6); CARBON DIOXIDE LEVEL 31 MMOL/L (20-31); CHLORIDE LEVEL 100 MMOL/L (98-107); CK-MB VALUE MASS 1.1 NG/ML (<3.6); CREATININE FOR GFR 0.65 MG/DL (0.55-1.30); GLOMERULAR FILTRATION RATE > 60.0 (>39); GLUCOSE, FASTING 226 MG/DL (74-106); MAGNESIUM LEVEL 1.7 MG/DL (1.8-2.4); MB/CK RELATIVE INDEX 2.68 (< OR =4); POTASSIUM SERUM 4.9 MMOL/L (3.5-5.1); SODIUM LEVEL 133 MMOL/L (136-145); TOTAL PROTEIN 6.4 G/DL (5.7-8.2)
[2023-06-07 13:39] LABS: FREE T4 1.17 NG/DL (0.89-1.76); THYROID STIMULATING HORMONE 2.096 uIU/ML (0.55-4.78)
[2023-06-07 13:42] LABS: RSV AMPLIFICATION NEGATIVE (NEGATIVE)
[2023-06-07] MEDS ORDERED: FLECAINIDE 50MG TABLET PO STA (14:09)
[2023-06-07 14:23] LABS: CK-MB VALUE MASS 1.5 NG/ML (<3.6)
[2023-06-07 14:43] LABS: MB/CK RELATIVE INDEX 3.33 (< OR =4)
[2023-06-07] MEDS ORDERED: LR 1,000 ML IV SCH ×2 (15:30→22:01)
[2023-06-07] MEDS ORDERED: ceFAZolin SOD 2 GM in IV 1 EA IV ONE (15:35)
[2023-06-07] MEDS ORDERED: MED REC IN PROGRESS XX SCH (16:00)
[2023-06-07] MEDS ORDERED: LIDOCAINE 1% SDV 30ML VIAL As Ordered ONE (16:37)
[2023-06-07] MEDS ORDERED: ISOVUE-300 61% 100ML VIAL As Ordered ONE (16:38)
[2023-06-07] MEDS ORDERED: GLUCAGON INJ 1MG VIAL SC PRN (18:25)
[2023-06-07] MEDS ORDERED: GLUCOSE 4GM CHEW TABLET PO PRN (18:25)
[2023-06-07] MEDS ORDERED: DEXTROSE 50% 50ML SYRINGE IV PRN (18:25)
[2023-06-07] MEDS ORDERED: HOME MED LIST COMPLETE! XX SCH (19:45)
[2023-06-07 20:20] VITALS: BP 162/68; TEMP 97.4; O2SAT 95
[2023-06-07 21:00] VITALS: O2SAT 92
[2023-06-07 22:00] VITALS: O2SAT 92
[2023-06-07 23:00] VITALS: O2SAT 90
[2023-06-07] MEDS ORDERED: MAGNESIUM OXIDE 400MG TAB (MAG-OX) PO ONE (23:05)
[2023-06-07 23:56] VITALS: BP 147/67; TEMP 96.7; O2SAT 95
[2023-06-07 23:58] VITALS: O2SAT 95
[2023-06-08] VITALS (27 sets, daily range): BP systolic 132–155; BP diastolic 65–75; TEMP 96.1–97.6; O2SAT 92–98
[2023-06-08] MEDS ORDERED: D5W/LR 1,000 ML IV SCH (07:55)
[2023-06-08] MEDS: ENOXAPARIN 30MG/0.3ML SYRINGE (J1650 PER 10MG) SC SCH (08:47)
[2023-06-08] MEDS ORDERED: LEVEMIR (INSULIN DETEMIR) 1 UNITS/0.01ML SC SCH (09:00)
[2023-06-08] MEDS ORDERED: ACETAMINOPHEN TAB 650MG DOSE (2X325MG) PO ONE (12:50)
[2023-06-08] MEDS ORDERED: ceFAZolin SOD 2 GM in IV 1 EA IV ONE (15:00)
[2023-06-08] MEDS ORDERED: propofoL 200 MG/20 ML VIAL As Ordered ONE ×3 (15:58→18:30)
[2023-06-08] MEDS ORDERED: LIDOCAINE 1% SDV 30ML VIAL As Ordered ONE (15:59)
[2023-06-08] MEDS ORDERED: ISOVUE-300 61% 100ML VIAL As Ordered ONE (15:59)
[2023-06-08] MEDS ORDERED: MIDAZOLAM INJ 2MG/2ML VIAL As Ordered ONE (16:13)
[2023-06-08] MEDS ORDERED: ceFAZolin 2 GM/D5W 50 ML IV BAG As Ordered ONE (16:36)
[2023-06-08] MEDS ORDERED: AMIODARONE 150MG/3ML VIAL As Ordered ONE (16:42)
[2023-06-08] MEDS ORDERED: PHENYLephrine 500MCG 5ML (100MCG/ML) SYRINGE As Ordered ONE (17:36)
[2023-06-08] MEDS ORDERED: ACETAMINOPHEN 1000MG 100ML IV BAG As Ordered ONE (17:36)
[2023-06-08] MEDS ORDERED: ONDANSETRON 4MG 2ML VIAL IV PRN (18:15)
[2023-06-08] MEDS ORDERED: HYDROMORPHONE HCL 0.5 MG/ 0.5 ML SYRINGE IV PRN (18:15)
[2023-06-08] MEDS ORDERED: fentaNYL 100 MCG/2 ML INJECTION IV PRN (18:15)
[2023-06-08] MEDS ORDERED: oxyCODONE 5MG TAB PO PRN (18:15)
[2023-06-08] MEDS ORDERED: BENZONATATE 100MG CAPSULE PO PRN (18:45)
[2023-06-08] MEDS ORDERED: ALBUTEROL 90 MCG/ACT 8GM HFA INHALER INH PRN (18:45)
[2023-06-08] MEDS: METOPROLOL TART 50 MG TAB PO SCH (21:01)
[2023-06-08] MEDS: MONTELUKAST 10 MG TAB PO SCH (21:01)
[2023-06-08] MEDS: PRIMIDONE 50MG TAB PO SCH (21:01)
[2023-06-08] MEDS: AMIODARONE 200 MG TAB (PACERONE) PO SCH (21:01)
[2023-06-09] VITALS (34 sets, daily range): BP systolic 117–168; BP diastolic 63–79; TEMP 97.2–98.2; O2SAT 88–96
[2023-06-09] MEDS: ceFAZolin SOD 1 GM in D5W MINI-BAG PLUS 50 ML IV SCH ×4 (01:01→23:59)
[2023-06-09] MEDS: ACETAMINOPHEN 650MG ER TAB (TYLENOL ARTHRITIS) PO PRN (07:55)
[2023-06-09] MEDS: hydroCHLOROthiazide 12.5 MG CAPSULE PO SCH (08:57)
[2023-06-09] MEDS: LEVEMIR (INSULIN DETEMIR) 1 UNITS/0.01ML SC SCH (08:57)
[2023-06-09] MEDS: SPIRONOLACTONE 12.5MG PER 1/2 TABLET PO SCH (08:57)
[2023-06-09] MEDS: FERROUS SULFATE 325MG TAB PO SCH (08:58)
[2023-06-09] MEDS: AMIODARONE 200 MG TAB (PACERONE) PO SCH ×4 (08:58→21:19)
[2023-06-09] MEDS: METOPROLOL TART 50 MG TAB PO SCH ×2 (08:58→16:47)
[2023-06-09] MEDS: PRIMIDONE 50MG TAB PO SCH ×3 (08:58→21:19)
[2023-06-09] MEDS: ATORVASTATIN 20 MG TAB PO SCH (08:59)
[2023-06-09] MEDS: lisinopriL 5 MG TAB PO SCH (08:59)
[2023-06-09] MEDS: POTASSIUM CHLORIDE 10MEQ SR TABLET PO SCH (08:59)
[2023-06-09] MEDS: ENOXAPARIN 30MG/0.3ML SYRINGE (J1650 PER 10MG) SC SCH (08:59)
[2023-06-09] MEDS: MONTELUKAST 10 MG TAB PO SCH (16:47)
[2023-06-09] MEDS: metFORMIN (GLUCOPHAGE) 1000MG TABLET PO SCH (16:47)
[2023-06-10] VITALS (30 sets, daily range): BP systolic 128–154; BP diastolic 61–68; TEMP 97.1–99.6; O2SAT 86–97
[2023-06-10 06:30] LABS: HEMATOCRIT 36.8 % (36.0-47.0); HEMOGLOBIN 11.7 g/dl (12.0-15.5); MEAN CORPUSCULAR HEMOGLOBIN 33.1 pg (27.0-33.0); MEAN CORPUSCULAR HGB CONC 31.8 g/dl (32.0-36.5); PLATELET COUNT, AUTOMATED 199 10^3/uL (150-450); RED BLOOD COUNT 3.54 10^6/uL (4.00-5.40); WHITE BLOOD COUNT 11.2 10^3/uL (4.0-10.0)
[2023-06-10] MEDS: LEVEMIR (INSULIN DETEMIR) 1 UNITS/0.01ML SC SCH (08:35)
[2023-06-10] MEDS: PRIMIDONE 50MG TAB PO SCH ×3 (08:35→20:41)
[2023-06-10] MEDS: SPIRONOLACTONE 12.5MG PER 1/2 TABLET PO SCH (08:35)
[2023-06-10] MEDS: ENOXAPARIN 30MG/0.3ML SYRINGE (J1650 PER 10MG) SC SCH (08:35)
[2023-06-10] MEDS: hydroCHLOROthiazide 12.5 MG CAPSULE PO SCH (08:35)
[2023-06-10] MEDS: ATORVASTATIN 20 MG TAB PO SCH (08:36)
[2023-06-10] MEDS: METOPROLOL TART 50 MG TAB PO SCH ×2 (08:36→17:07)
[2023-06-10] MEDS: AMIODARONE 200 MG TAB (PACERONE) PO SCH ×4 (08:36→20:40)
[2023-06-10] MEDS: POTASSIUM CHLORIDE 10MEQ SR TABLET PO SCH (08:36)
[2023-06-10] MEDS: FERROUS SULFATE 325MG TAB PO SCH (08:36)
[2023-06-10] MEDS: lisinopriL 5 MG TAB PO SCH (08:36)
[2023-06-10] MEDS: ceFAZolin SOD 1 GM in D5W MINI-BAG PLUS 50 ML IV SCH ×3 (08:37→17:06)
[2023-06-10] MEDS: ACETAMINOPHEN 650MG ER TAB (TYLENOL ARTHRITIS) PO PRN (13:25)
[2023-06-10] MEDS: MONTELUKAST 10 MG TAB PO SCH (17:06)
[2023-06-10] MEDS: metFORMIN (GLUCOPHAGE) 1000MG TABLET PO SCH (17:06)
[2023-06-11] VITALS (14 sets, daily range): BP systolic 110–155; BP diastolic 54–71; TEMP 97.1–98.3; O2SAT 93–96
[2023-06-11] MEDS ORDERED: MIRALAX *UNIT DOSE* 17GM PACKET PO PRN (00:05)
[2023-06-11] MEDS: ceFAZolin SOD 1 GM in D5W MINI-BAG PLUS 50 ML IV SCH ×3 (00:34→17:42)
[2023-06-11] MEDS: ACETAMINOPHEN 650MG ER TAB (TYLENOL ARTHRITIS) PO PRN ×2 (04:37→14:46)
[2023-06-11 06:13] LABS: BASO % 0.4 % (0.0-1.0); EOS # 0.3 10^3/uL (0.0-0.5); EOS % 2.7 % (0.0-3.0); HEMATOCRIT 37.2 % (36.0-47.0); HEMOGLOBIN 11.6 g/dl (12.0-15.5); LYMPH # 2.8 10^3/uL (1.5-5.0); LYMPH % 29.5 % (24.0-44.0); MEAN CORPUSCULAR HEMOGLOBIN 32.8 pg (27.0-33.0); MEAN CORPUSCULAR HGB CONC 31.2 g/dl (32.0-36.5); MEAN CORPUSCULAR VOLUME 105.1 fl (80.0-96.0); MONO # 0.9 10^3/uL (0.0-0.8); MONO % 9.7 % (2.0-8.0); NEUTROPHILS # 5.4 10^3/uL (1.5-8.5); NEUTROPHILS % 57.4 % (36.0-66.0); PLATELET COUNT, AUTOMATED 204 10^3/uL (150-450); RED BLOOD COUNT 3.54 10^6/uL (4.00-5.40); WHITE BLOOD COUNT 9.4 10^3/uL (4.0-10.0)
[2023-06-11] MEDS: ATORVASTATIN 20 MG TAB PO SCH (09:51)
[2023-06-11] MEDS: LEVEMIR (INSULIN DETEMIR) 1 UNITS/0.01ML SC SCH (09:51)
[2023-06-11] MEDS: ENOXAPARIN 30MG/0.3ML SYRINGE (J1650 PER 10MG) SC SCH (09:51)
[2023-06-11] MEDS: FERROUS SULFATE 325MG TAB PO SCH (09:51)
[2023-06-11] MEDS: AMIODARONE 200 MG TAB (PACERONE) PO SCH ×4 (09:51→20:28)
[2023-06-11] MEDS: SPIRONOLACTONE 12.5MG PER 1/2 TABLET PO SCH (09:52)
[2023-06-11] MEDS: lisinopriL 5 MG TAB PO SCH (09:52)
[2023-06-11] MEDS: POTASSIUM CHLORIDE 10MEQ SR TABLET PO SCH (09:52)
[2023-06-11] MEDS: METOPROLOL TART 50 MG TAB PO SCH ×2 (09:52→17:43)
[2023-06-11] MEDS: PRIMIDONE 50MG TAB PO SCH ×3 (09:52→20:28)
[2023-06-11] MEDS: hydroCHLOROthiazide 12.5 MG CAPSULE PO SCH (09:52)
[2023-06-11] MEDS: MONTELUKAST 10 MG TAB PO SCH (17:43)
[2023-06-11] MEDS: metFORMIN (GLUCOPHAGE) 1000MG TABLET PO SCH (17:43)
[2023-06-12] MEDS: ceFAZolin SOD 1 GM in D5W MINI-BAG PLUS 50 ML IV SCH ×2 (00:46→10:05)
[2023-06-12] MEDS: ACETAMINOPHEN 650MG ER TAB (TYLENOL ARTHRITIS) PO PRN (00:46)
[2023-06-12 03:15] VITALS: BP 130/63; TEMP 97.2; O2SAT 94
[2023-06-12 08:14] VITALS: BP 135/61; TEMP 97.4; O2SAT 93
[2023-06-12] MEDS ORDERED: AMIO200T49 PO (08:24)
[2023-06-12 09:04] VITALS: O2SAT 87
[2023-06-12 09:06] VITALS: O2SAT 94
[2023-06-12] MEDS: LEVEMIR (INSULIN DETEMIR) 1 UNITS/0.01ML SC SCH (09:56)
[2023-06-12] MEDS: hydroCHLOROthiazide 12.5 MG CAPSULE PO SCH (09:57)
[2023-06-12] MEDS: SPIRONOLACTONE 12.5MG PER 1/2 TABLET PO SCH (09:57)
[2023-06-12] MEDS: POTASSIUM CHLORIDE 10MEQ SR TABLET PO SCH (09:58)
[2023-06-12] MEDS: AMIODARONE 200 MG TAB (PACERONE) PO SCH ×2 (09:58→12:52)
[2023-06-12] MEDS: PRIMIDONE 50MG TAB PO SCH (09:58)
[2023-06-12] MEDS: ATORVASTATIN 20 MG TAB PO SCH (09:58)
[2023-06-12] MEDS: FERROUS SULFATE 325MG TAB PO SCH (09:58)
[2023-06-12 09:59] VITALS: BP 135/61
[2023-06-12] MEDS: lisinopriL 5 MG TAB PO SCH (09:59)
[2023-06-12] MEDS: METOPROLOL TART 50 MG TAB PO SCH (09:59)
[2023-06-12] MEDS: ENOXAPARIN 30MG/0.3ML SYRINGE (J1650 PER 10MG) SC SCH (10:00)
[2023-06-12 12:11] VITALS: BP 138/73; TEMP 97.9; O2SAT 94
== END 2023-06-12 13:15 | disposition home or self-care (01) | DRG 243 ==
LOC: M ED 12:12 → EDBD 12:12 → M ED INP 18:09 → M PCU 20:20
PROVIDERS: ADMIT Internal Medicine Cardiovascular Disease; ATTEND Internal Medicine Cardiovascular Disease
PROC: 02HK3JZ Insertion of Pacemaker Lead into Right Ventricle, Percutaneous Approach (ICD-10-PCS; 2023-06-08)
PROC: 02H63JZ Insertion of Pacemaker Lead into Right Atrium, Percutaneous Approach (ICD-10-PCS; 2023-06-08)
PROC: B246ZZZ Ultrasonography of Right and Left Heart (ICD-10-PCS; 2023-06-08)
PROC: 0JH606Z Insertion of Pacemaker, Dual Chamber into Chest Subcutaneous Tissue and Fascia, Open Approach (ICD-10-PCS; principal; 2023-06-08 15:30)
DX: I49.5 Sick sinus syndrome (principal); I50.32 Chronic diastolic (congestive) heart failure; E66.2 Morbid (severe) obesity with alveolar hypoventilation; I47.19 Other supraventricular tachycardia; G47.33 Obstructive sleep apnea (adult) (pediatric); J44.9 Chronic obstructive pulmonary disease, unspecified; E11.21 Type 2 diabetes mellitus with diabetic nephropathy; I25.10 Atherosclerotic heart disease of native coronary artery without angina pectoris; E78.00 Pure hypercholesterolemia, unspecified; I11.0 Hypertensive heart disease with heart failure; I48.0 Paroxysmal atrial fibrillation; K21.9 Gastro-esophageal reflux disease without esophagitis; M51.36 Other intervertebral disc degeneration, lumbar region; F32.A Depression, unspecified; F41.9 Anxiety disorder, unspecified; Z90.49 Acquired absence of other specified parts of digestive tract; Z90.79 Acquired absence of other genital organ(s); Z87.891 Personal history of nicotine dependence; Z79.4 Long term (current) use of insulin; Z79.84 Long term (current) use of oral hypoglycemic drugs; Z79.899 Other long term (current) drug therapy; Z88.0 Allergy status to penicillin; Z20.822 Contact with and (suspected) exposure to COVID-19; R09.02 Hypoxemia; Z68.35 Body mass index [BMI] 35.0-35.9, adult

== ENCOUNTER → 2023-07-10 | Outpatient (CLI) | payer MEDICARE, MEDICAID ==
[~2023-07-10] MED LIST changes: +AMIO200T49 PO
== END ==
LOC: M WUC 15:00
PROVIDERS: ATTEND Internal Medicine
DX: S02.2XXA Fracture of nasal bones, initial encounter for closed fracture (principal); X58.XXXA Exposure to other specified factors, initial encounter; Y92.9 Unspecified place or not applicable

== ENCOUNTER 2023-08-22 15:50 | Emergency (ER) | payer MEDICARE, MEDICAID ==
[~2023-08-22] VITALS: Ht 154.9 cm; Wt 89.5 kg
[2023-08-22 15:55] VITALS: BP 184/84; TEMP 96.4; O2SAT 94
== END 2023-08-22 22:05 | disposition left against medical advice (07) ==
LOC: M ED 15:50
DX: Z53.21 Procedure and treatment not carried out due to patient leaving prior to being seen by health care provider (principal)

== ENCOUNTER 2023-08-24 19:31 | Emergency (ER) | payer MEDICARE, MEDICAID ==
[~2023-08-24] VITALS: Ht 157.5 cm; Wt 89.5 kg
[2023-08-24 20:36] LABS: BASO % 0.5 % (0.0-1.0); EOS # 0.1 10^3/uL (0.0-0.5); EOS % 1.5 % (0.0-3.0); HEMATOCRIT 39.9 % (36.0-47.0); HEMOGLOBIN 12.4 g/dl (12.0-15.5); LYMPH # 1.9 10^3/uL (1.5-5.0); LYMPH % 22.5 % (24.0-44.0); MEAN CORPUSCULAR HEMOGLOBIN 33.7 pg (27.0-33.0); MEAN CORPUSCULAR HGB CONC 31.1 g/dl (32.0-36.5); MEAN CORPUSCULAR VOLUME 108.4 fl (80.0-96.0); MONO # 0.6 10^3/uL (0.0-0.8); MONO % 7.1 % (2.0-8.0); NEUTROPHILS # 5.8 10^3/uL (1.5-8.5); PLATELET COUNT, AUTOMATED 218 10^3/uL (150-450); RED BLOOD COUNT 3.68 10^6/uL (4.00-5.40); WHITE BLOOD COUNT 8.5 10^3/uL (4.0-10.0)
[2023-08-24 21:04] LABS: THYROXINE (T4) 8.1 UG/DL (4.5-10.9)
[2023-08-24 21:05] LABS: THYROID STIMULATING HORMONE 3.187 uIU/ML (0.55-4.78)
[2023-08-24 21:10] LABS: BLOOD UREA NITROGEN 17 MG/DL (9-23); CALCIUM LEVEL 8.5 MG/DL (8.3-10.6); CARBON DIOXIDE LEVEL 35 MMOL/L (20-31); CHLORIDE LEVEL 102 MMOL/L (98-107); CK-MB VALUE MASS 2.3 NG/ML (<3.6); CPK CREATINE PHOSPHOKINASE 120 U/L (34-145); CREATININE FOR GFR 0.88 MG/DL (0.55-1.30); GLOMERULAR FILTRATION RATE > 60.0 (>39); GLUCOSE, FASTING 256 MG/DL (74-106); MB/CK RELATIVE INDEX 1.91 (< OR =4); POTASSIUM SERUM 4.9 MMOL/L (3.5-5.1); SODIUM LEVEL 143 MMOL/L (136-145)
[2023-08-24] MEDS: IPRATROPIUM 0.5MG/ALBUTEROL 2.5MG INH SOL UD 3ML (DUONEB) NEB ONE (21:14)
[2023-08-24] MEDS ORDERED: ISOVUE-370 76% 100ML VIAL As Ordered ONE (22:03)
[2023-08-24 22:35] LABS: MB/CK RELATIVE INDEX 1.86 (< OR =4)
[2023-08-25] MEDS ORDERED: PRED20TA PO (00:47)
[2023-08-25] MEDS: traMADol 50 MG TAB (HOME DOSE PACK) PO ONE (01:09)
[2023-08-25 01:18] VITALS: BP 154/77; O2SAT 94
[2023-08-25 01:20] VITALS: TEMP 97.9
== END 2023-08-25 01:30 | disposition home or self-care (01) ==
LOC: M ED 19:31 → EDBD 19:31 → M ED 08-25 01:30
DX: S22.32XA Fracture of one rib, left side, initial encounter for closed fracture (principal); J98.11 Atelectasis; I51.7 Cardiomegaly; E11.9 Type 2 diabetes mellitus without complications; E78.5 Hyperlipidemia, unspecified; J44.9 Chronic obstructive pulmonary disease, unspecified; Z86.79 Personal history of other diseases of the circulatory system; Z87.891 Personal history of nicotine dependence; Z88.0 Allergy status to penicillin; Z88.2 Allergy status to sulfonamides; Z88.5 Allergy status to narcotic agent; Z88.6 Allergy status to analgesic agent; Z88.8 Allergy status to other drugs, medicaments and biological substances; Y04.8XXA Assault by other bodily force, initial encounter; Y92.009 Unspecified place in unspecified non-institutional (private) residence as the place of occurrence of the external cause; Y93.9 Activity, unspecified; Y99.9 Unspecified external cause status
CPT/HCPCS: 36415; 71045; 71275; 74177; 80048; 82550; 82553; 83605; 83880; 84436; 84443; 84484; 85025; 86850; 86900; 86901; 87040; 87486; 87581; 87633; 87798; 93005; 94640; 99284; Q9967

== ENCOUNTER → 2023-10-06 | Outpatient (REF) | payer MEDICARE, MEDICAID | LOC: M LABWUC 14:14 | PROVIDERS: ATTEND Internal Medicine Cardiovascular Disease | DX: I48.0 Paroxysmal atrial fibrillation (principal); I50.32 Chronic diastolic (congestive) heart failure; I11.9 Hypertensive heart disease without heart failure ==

== ENCOUNTER → 2023-10-06 | Outpatient (CLI) | payer MEDICARE, MEDICAID ==
[2023-10-06 14:45] LABS: BASO # 0.1 10^3/uL (0.0-0.2); BASO % 0.6 % (0.0-1.0); EOS # 0.2 10^3/uL (0.0-0.5); EOS % 1.8 % (0.0-3.0); HEMATOCRIT 45.6 % (36.0-47.0); HEMOGLOBIN 13.7 g/dl (12.0-15.5); LYMPH % 33.5 % (24.0-44.0); MEAN CORPUSCULAR VOLUME 109.9 fl (80.0-96.0); MONO # 0.6 10^3/uL (0.0-0.8); NEUTROPHILS # 5.1 10^3/uL (1.5-8.5); NEUTROPHILS % 56.4 % (36.0-66.0); PLATELET COUNT, AUTOMATED 216 10^3/uL (150-450); RED BLOOD COUNT 4.15 10^6/uL (4.00-5.40)
[2023-10-06 15:16] LABS: ALBUMIN 3.5 G/DL (3.2-5.2); ALKALINE PHOSPHATASE 165 U/L (46-116); ALT/SGPT 22 U/L (7.0-40); AST/SGOT 17 U/L (<34); BILIRUBIN,TOTAL 0.3 MG/DL (0.3-1.2); BLOOD UREA NITROGEN 17 MG/DL (9-23); CARBON DIOXIDE LEVEL 33 MMOL/L (20-31); CHLORIDE LEVEL 102 MMOL/L (98-107); CHOLESTEROL LEVEL 157 MG/DL (<200); CHOLESTEROL RISK RATIO 3.01 (<5); CREATININE FOR GFR 0.84 MG/DL (0.55-1.30); GLOMERULAR FILTRATION RATE > 60.0 (>39); GLUCOSE, FASTING 161 MG/DL (74-106); HDL CHOLESTEROL 52.1 MG/DL (>40); LDL CHOLESTEROL 84.5 MG/DL (<100); NON-HDL-C 104.9 MG/DL; SODIUM LEVEL 141 MMOL/L (136-145); TOTAL PROTEIN 6.4 G/DL (5.7-8.2); TRIGLYCERIDES LEVEL 102 MG/DL (<150)
[2023-10-06 15:17] LABS: HEMOGLOBIN A1c 8.1 % (4.0-6.0)
== END ==
LOC: M WUC 09:39
PROVIDERS: ATTEND Internal Medicine
DX: I50.32 Chronic diastolic (congestive) heart failure (principal); E78.5 Hyperlipidemia, unspecified; E11.40 Type 2 diabetes mellitus with diabetic neuropathy, unspecified; I48.0 Paroxysmal atrial fibrillation; I11.9 Hypertensive heart disease without heart failure

== ENCOUNTER 2023-10-16 10:49 | Observation (INO) | payer MEDICARE, MEDICAID ==
[~2023-10-16] VITALS: Ht 154.9 cm; Wt 93.8 kg
[2023-10-16] VITALS (10 sets, daily range): BP systolic 110–118; BP diastolic 67–68; TEMP 98.1; O2SAT 73–100
[2023-10-16 12:00] LABS: BASO % 0.2 % (0.0-1.0); EOS % 0.1 % (0.0-3.0); HEMATOCRIT 45.4 % (36.0-47.0); HEMOGLOBIN 14.4 g/dl (12.0-15.5); LYMPH # 1.1 10^3/uL (1.5-5.0); LYMPH % 5.6 % (24.0-44.0); MEAN CORPUSCULAR HEMOGLOBIN 33.2 pg (27.0-33.0); MEAN CORPUSCULAR HGB CONC 31.7 g/dl (32.0-36.5); MEAN CORPUSCULAR VOLUME 104.6 fl (80.0-96.0); MONO # 0.9 10^3/uL (0.0-0.8); MONO % 4.9 % (2.0-8.0); NEUTROPHILS # 16.8 10^3/uL (1.5-8.5); NEUTROPHILS % 88.7 % (36.0-66.0); PLATELET COUNT, AUTOMATED 238 10^3/uL (150-450); RED BLOOD COUNT 4.34 10^6/uL (4.00-5.40); WHITE BLOOD COUNT 18.9 10^3/uL (4.0-10.0)
[2023-10-16 12:24] LABS: LIPASE 32 U/L (12-53)
[2023-10-16 12:26] LABS: ACETONE/KETONE 0.12 MMOL/L (0.02-0.27); ALBUMIN 3.3 G/DL (3.2-5.2); ALKALINE PHOSPHATASE 126 U/L (46-116); ALT/SGPT 22 U/L (7.0-40); AST/SGOT 28 U/L (<34); BILIRUBIN,DIRECT 0.1 MG/DL (<0.4); BILIRUBIN,TOTAL 0.4 MG/DL (0.3-1.2); BLOOD UREA NITROGEN 25 MG/DL (9-23); CALCIUM LEVEL 8.9 MG/DL (8.3-10.6); CARBON DIOXIDE LEVEL 32 MMOL/L (20-31); CHLORIDE LEVEL 98 MMOL/L (98-107); CREATININE FOR GFR 0.75 MG/DL (0.55-1.30); GLOMERULAR FILTRATION RATE > 60.0 (>39); GLUCOSE, FASTING 209 MG/DL (74-106); POTASSIUM SERUM 4.1 MMOL/L (3.5-5.1); SODIUM LEVEL 136 MMOL/L (136-145); TOTAL PROTEIN 6.2 G/DL (5.7-8.2)
[2023-10-16 12:55] LABS: HEMOGLOBIN A1c 7.7 % (4.0-6.0)
[2023-10-16 13:12] LABS: OSMOLALITY SERUM 296 MOSM/KG (280-301)
[2023-10-16 13:22] LABS: CK-MB VALUE MASS 5.9 NG/ML (<3.6); CPK CREATINE PHOSPHOKINASE 144 U/L (34-145); MB/CK RELATIVE INDEX 4.09 (< OR =4)
[2023-10-16] MEDS: LIDOCAINE 2% 5ML JELLY UROJET TOP ONE (13:28)
[2023-10-16 14:42] LABS: CK-MB VALUE MASS 5.2 NG/ML (<3.6)
[2023-10-16 14:47] LABS: MB/CK RELATIVE INDEX 3.56 (< OR =4)
[2023-10-16 16:07] LABS: PROCALCITONIN <0.04 ng/ml
[2023-10-16] MEDS: INSULIN LISPRO (NovoLOG) PER UNIT SC SCH ×2 (17:30→21:00)
[2023-10-16] MEDS ORDERED: GLUCAGON INJ 1MG VIAL SC PRN (18:00)
[2023-10-16] MEDS ORDERED: GLUCOSE 4 GM CHEW PO PRN (18:00)
[2023-10-16] MEDS ORDERED: DEXTROSE 50% 50ML SYRINGE IV PRN (18:00)
[2023-10-16] MEDS ORDERED: BREO1INH INH (18:38)
[2023-10-16] MEDS ORDERED: BENZ200C70 PO (18:38)
[2023-10-16] MEDS ORDERED: AMLO1TAB25 PO (18:38)
[2023-10-16] MEDS ORDERED: AMIO200T49 PO (18:38)
[2023-10-16] MEDS ORDERED: HOME MED LIST COMPLETE! XX SCH (18:40)
[2023-10-16] MEDS: NYSTATIN CREAM 15GM TOP SCH (18:43)
[2023-10-16] MEDS: D5W 1,000 ML IV SCH (19:47)
[2023-10-16] MEDS: HEPARIN SOD (PORCINE) 5000UNITS/ML 1ML VIAL/SYRINGE SQ SCH (19:50)
[2023-10-16] MEDS: METOPROLOL TARTRATE 100MG TAB PO SCH (19:51)
[2023-10-16] MEDS: FERROUS SULFATE 325MG TAB PO SCH (19:51)
[2023-10-16] MEDS: ATORVASTATIN 20 MG TAB PO SCH (19:51)
[2023-10-16] MEDS: AMIODARONE 200 MG TAB (PACERONE) PO SCH (19:52)
[2023-10-16] MEDS: FLUCONAZOLE 200 MG in IV 1 EA IV ONE (21:29)
[2023-10-16] MEDS ORDERED: ALPRAZolam 0.25 MG TAB PO ONE (22:35)
[2023-10-17 04:00] VITALS: BP 113/64; TEMP 98.1; O2SAT 93
[2023-10-17 07:03] LABS: BASO % 0.5 % (0.0-1.0); EOS # 0.1 10^3/uL (0.0-0.5); HEMATOCRIT 42.1 % (36.0-47.0); HEMOGLOBIN 13.2 g/dl (12.0-15.5); LYMPH # 2.8 10^3/uL (1.5-5.0); LYMPH % 31.9 % (24.0-44.0); MEAN CORPUSCULAR HEMOGLOBIN 32.4 pg (27.0-33.0); MEAN CORPUSCULAR HGB CONC 31.4 g/dl (32.0-36.5); MEAN CORPUSCULAR VOLUME 103.4 fl (80.0-96.0); MONO # 0.7 10^3/uL (0.0-0.8); MONO % 8.3 % (2.0-8.0); NEUTROPHILS # 5.1 10^3/uL (1.5-8.5); NEUTROPHILS % 58.1 % (36.0-66.0); PLATELET COUNT, AUTOMATED 190 10^3/uL (150-450); RED BLOOD COUNT 4.07 10^6/uL (4.00-5.40); WHITE BLOOD COUNT 8.7 10^3/uL (4.0-10.0)
[2023-10-17 07:21] LABS: BLOOD UREA NITROGEN 20 MG/DL (9-23); CALCIUM LEVEL 8.8 MG/DL (8.3-10.6); CARBON DIOXIDE LEVEL 31 MMOL/L (20-31); CHLORIDE LEVEL 99 MMOL/L (98-107); CREATININE FOR GFR 0.84 MG/DL (0.55-1.30); GLOMERULAR FILTRATION RATE > 60.0 (>39); GLUCOSE, FASTING 138 MG/DL (74-106); POTASSIUM SERUM 4.4 MMOL/L (3.5-5.1); SODIUM LEVEL 135 MMOL/L (136-145)
[2023-10-17] MEDS: lisinopriL 5 MG TAB PO SCH (08:42)
[2023-10-17] MEDS: METOPROLOL TART 50 MG TAB PO SCH (08:42)
[2023-10-17] MEDS ORDERED: MONTELUKAST 10 MG TAB PO SCH (09:00)
[2023-10-17] MEDS ORDERED: LANTINJ4 SC (09:03)
[2023-10-17] MEDS ORDERED: INSU100I16 SQ (09:08)
[2023-10-17] MEDS ORDERED: NYST-13 TOP (11:49)
== END 2023-10-17 11:48 | disposition home or self-care (01) ==
LOC: EDBD 10:49 → M ED 10:49 → M ED INP 15:50 → INTOOBSV 15:50 → M MSPAV 17:30
PROVIDERS: ADMIT General Practice; ATTEND General Practice
DX: E16.2 Hypoglycemia, unspecified (principal); T38.3X5A Adverse effect of insulin and oral hypoglycemic [antidiabetic] drugs, initial encounter; E11.40 Type 2 diabetes mellitus with diabetic neuropathy, unspecified; E11.649 Type 2 diabetes mellitus with hypoglycemia without coma; B37.9 Candidiasis, unspecified; J96.11 Chronic respiratory failure with hypoxia; Z99.81 Dependence on supplemental oxygen; F41.9 Anxiety disorder, unspecified; F32.A Depression, unspecified; I11.0 Hypertensive heart disease with heart failure; I48.0 Paroxysmal atrial fibrillation; Z95.0 Presence of cardiac pacemaker; I49.5 Sick sinus syndrome; M51.36 Other intervertebral disc degeneration, lumbar region; E66.9 Obesity, unspecified; E78.5 Hyperlipidemia, unspecified; F17.200 Nicotine dependence, unspecified, uncomplicated; G47.33 Obstructive sleep apnea (adult) (pediatric); D72.829 Elevated white blood cell count, unspecified; Z79.899 Other long term (current) drug therapy; Z79.84 Long term (current) use of oral hypoglycemic drugs; Z88.0 Allergy status to penicillin; Z88.1 Allergy status to other antibiotic agents; Z88.8 Allergy status to other drugs, medicaments and biological substances
CPT/HCPCS: 36415; 51701; 70450; 71045; 80048; 80076; 81001; 82010; 82550; 82553; 83036; 83605; 83690; 83930; 84145; 84484; 85025; 85652; 86140; 87040; 87077; 87186; 87486; 87507; 87581; 87633; 87798; 93005; 93041; 94760; 96361; 96365; 96372; 97116; 97161; 99285; G0378; J1815

== ENCOUNTER 2023-12-08 12:24 | Emergency (ER) | payer MEDICARE, MEDICAID ==
[~2023-12-08] VITALS: Ht 154.9 cm; Wt 61.4 kg
[~2023-12-08 12:24] MED LIST changes: +BREO1INH INH; +INSU100I16 SQ; +LANTINJ4 SC; +NYST-13 TOP
[2023-12-08 12:38] VITALS: TEMP 96.3
[2023-12-08] MEDS: DEXTROSE 50% 50ML SYRINGE IV STA (13:06)
[2023-12-08 13:13] LABS: BASO % 0.3 % (0.0-1.0); EOS % 0.2 % (0.0-3.0); HEMATOCRIT 44.8 % (36.0-47.0); LYMPH # 1.2 10^3/uL (1.5-5.0); LYMPH % 13.1 % (24.0-44.0); MEAN CORPUSCULAR HEMOGLOBIN 32.9 pg (27.0-33.0); MEAN CORPUSCULAR HGB CONC 31.3 g/dl (32.0-36.5); MEAN CORPUSCULAR VOLUME 105.4 fl (80.0-96.0); MONO # 0.5 10^3/uL (0.0-0.8); MONO % 5.3 % (2.0-8.0); NEUTROPHILS # 7.6 10^3/uL (1.5-8.5); NEUTROPHILS % 80.8 % (36.0-66.0); PLATELET COUNT, AUTOMATED 215 10^3/uL (150-450); RED BLOOD COUNT 4.25 10^6/uL (4.00-5.40); WHITE BLOOD COUNT 9.4 10^3/uL (4.0-10.0)
[2023-12-08 13:45] LABS: ALBUMIN 3.6 G/DL (3.2-5.2); ALKALINE PHOSPHATASE 95 U/L (46-116); ALT/SGPT 32 U/L (7.0-40); AST/SGOT 27 U/L (<34); BILIRUBIN,DIRECT 0.2 MG/DL (<0.4); BILIRUBIN,TOTAL 0.4 MG/DL (0.3-1.2); BLOOD UREA NITROGEN 23 MG/DL (9-23); CALCIUM LEVEL 9.4 MG/DL (8.3-10.6); CARBON DIOXIDE LEVEL 33 MMOL/L (20-31); CHLORIDE LEVEL 105 MMOL/L (98-107); CREATININE FOR GFR 0.82 MG/DL (0.55-1.30); GLOMERULAR FILTRATION RATE > 60.0 (>39); GLUCOSE, FASTING 84 MG/DL (74-106); POTASSIUM SERUM 4.8 MMOL/L (3.5-5.1); SODIUM LEVEL 144 MMOL/L (136-145); TOTAL PROTEIN 6.4 G/DL (5.7-8.2)
[2023-12-08 16:00] VITALS: BP 141/89; O2SAT 96
[2023-12-09] MEDS ORDERED: Glucose test strips XX (11:16)
== END 2023-12-08 17:21 | disposition home or self-care (01) ==
LOC: EDBD 12:24 → M ED 12:24
DX: S40.012A Contusion of left shoulder, initial encounter (principal); Y92.9 Unspecified place or not applicable; Y93.9 Activity, unspecified; Y99.9 Unspecified external cause status; Y04.2XXA Assault by strike against or bumped into by another person, initial encounter; F43.0 Acute stress reaction; E10.649 Type 1 diabetes mellitus with hypoglycemia without coma; R94.31 Abnormal electrocardiogram [ECG] [EKG]; J45.909 Unspecified asthma, uncomplicated; J44.9 Chronic obstructive pulmonary disease, unspecified; E78.5 Hyperlipidemia, unspecified; K21.9 Gastro-esophageal reflux disease without esophagitis; Z88.0 Allergy status to penicillin; Z88.1 Allergy status to other antibiotic agents; Z88.8 Allergy status to other drugs, medicaments and biological substances; Z79.1 Long term (current) use of non-steroidal anti-inflammatories (NSAID); Z79.51 Long term (current) use of inhaled steroids; Z79.4 Long term (current) use of insulin; Z79.84 Long term (current) use of oral hypoglycemic drugs; Z79.899 Other long term (current) drug therapy

== ENCOUNTER 2023-12-09 09:35 | Emergency (ER) | payer MEDICAID, MEDICARE ==
[~2023-12-09] VITALS: Ht 154.9 cm; Wt 104.1 kg
[2023-12-09 11:16] VITALS: BP 142/64
[2023-12-09] MEDS ORDERED: Glucose test strips XX (11:16)
[2023-12-09 11:20] VITALS: TEMP 96.9; O2SAT 93
[2023-12-10] MEDS ORDERED: INSU100I24 SC (07:43)
[2023-12-10] MEDS ORDERED: LANTINJ4 SC (07:43)
== END 2023-12-09 11:35 | disposition home or self-care (01) ==
LOC: EDBD 09:35 → M ED 09:35
DX: E11.649 Type 2 diabetes mellitus with hypoglycemia without coma (principal); I11.0 Hypertensive heart disease with heart failure; J44.9 Chronic obstructive pulmonary disease, unspecified; G47.33 Obstructive sleep apnea (adult) (pediatric); I25.119 Atherosclerotic heart disease of native coronary artery with unspecified angina pectoris; Z87.891 Personal history of nicotine dependence; Z88.0 Allergy status to penicillin; Z88.1 Allergy status to other antibiotic agents; Z88.5 Allergy status to narcotic agent; Z88.8 Allergy status to other drugs, medicaments and biological substances; Z79.1 Long term (current) use of non-steroidal anti-inflammatories (NSAID); Z79.51 Long term (current) use of inhaled steroids; Z79.84 Long term (current) use of oral hypoglycemic drugs; Z79.899 Other long term (current) drug therapy

== ENCOUNTER 2023-12-10 00:11 | Observation (INO) | payer MEDICARE ==
[~2023-12-10] VITALS: Ht 154.9 cm; Wt 90.5 kg
[~2023-12-10 00:11] MED LIST changes: +Glucose test strips XX
[2023-12-10] MEDS ORDERED: DEXTROSE 50% 50ML SYRINGE As Ordered ONE (00:20)
[2023-12-10] MEDS: DEXTROSE 50% 50ML SYRINGE IV STA ×2 (00:25→01:58)
[2023-12-10 00:50] LABS: VENOUS HCO3 28.6 MMOL/L (23.0-27.0); VENOUS PARTIAL PRESSURE CO2 58.8 mmHg (38.0-50.0); VENOUS PARTIAL PRESSURE O2 57.9 mmHg (30.0-50.0); VENOUS PH 7.305 UNITS (7.330-7.430); VENOUS STANDARD HCO3 25.1 MMOL/L; VENOUS TOTAL CO2 30.4 MMOL/L (24.0-28.0)
[2023-12-10 00:54] LABS: BASO % 0.3 % (0.0-1.0); EOS # 0.2 10^3/uL (0.0-0.5); EOS % 1.9 % (0.0-3.0); HEMATOCRIT 40.5 % (36.0-47.0); HEMOGLOBIN 12.8 g/dl (12.0-15.5); LYMPH # 2.2 10^3/uL (1.5-5.0); LYMPH % 18.3 % (24.0-44.0); MEAN CORPUSCULAR HEMOGLOBIN 33.3 pg (27.0-33.0); MEAN CORPUSCULAR HGB CONC 31.6 g/dl (32.0-36.5); MEAN CORPUSCULAR VOLUME 105.5 fl (80.0-96.0); NEUTROPHILS # 8.7 10^3/uL (1.5-8.5); NEUTROPHILS % 71.1 % (36.0-66.0); PLATELET COUNT, AUTOMATED 221 10^3/uL (150-450); RED BLOOD COUNT 3.84 10^6/uL (4.00-5.40); WHITE BLOOD COUNT 12.2 10^3/uL (4.0-10.0)
[2023-12-10 01:10] LABS: ACETONE/KETONE 0.17 MMOL/L (0.02-0.27)
[2023-12-10 01:18] LABS: ALBUMIN 3.6 G/DL (3.2-5.2); ALKALINE PHOSPHATASE 95 U/L (46-116); ALT/SGPT 30 U/L (7.0-40); AST/SGOT 44 U/L (<34); BILIRUBIN,DIRECT 0.1 MG/DL (<0.4); BILIRUBIN,TOTAL 0.4 MG/DL (0.3-1.2); BLOOD UREA NITROGEN 25 MG/DL (9-23); CALCIUM LEVEL 8.9 MG/DL (8.3-10.6); CARBON DIOXIDE LEVEL 28 MMOL/L (20-31); CHLORIDE LEVEL 106 MMOL/L (98-107); CPK CREATINE PHOSPHOKINASE 154 U/L (34-145); CREATININE FOR GFR 0.89 MG/DL (0.55-1.30); GLOMERULAR FILTRATION RATE > 60.0 (>39); GLUCOSE, FASTING 40 MG/DL (74-106); LIPASE 62 U/L (12-53); MB/CK RELATIVE INDEX 1.94 (< OR =4); POTASSIUM SERUM 5.8 MMOL/L (3.5-5.1); SODIUM LEVEL 140 MMOL/L (136-145); TOTAL PROTEIN 6.5 G/DL (5.7-8.2)
[2023-12-10 01:27] LABS: OSMOLALITY SERUM 294 MOSM/KG (280-301)
[2023-12-10 01:28] LABS: HEMOGLOBIN A1c 6.7 % (4.0-6.0)
[2023-12-10] MEDS: D5W/0.45% SODIUM CHLORIDE 1,000 ML IV SCH ×2 (01:58→06:15)
[2023-12-10] MEDS ORDERED: DEXTROSE 50% 50ML SYRINGE IV PRN (05:15)
[2023-12-10] MEDS ORDERED: GLUCOSE 4 GM CHEW PO PRN (05:15)
[2023-12-10] MEDS ORDERED: MOM 30ML SUSPENSION UDC PO PRN (05:15)
[2023-12-10] MEDS ORDERED: GLUCAGON INJ 1MG VIAL SC PRN (05:15)
[2023-12-10] MEDS ORDERED: MED REC CURRENTLY UNOBTAINABLE XX SCH (05:35)
[2023-12-10] MEDS ORDERED: INSU100I24 SC (07:43)
[2023-12-10] MEDS ORDERED: LANTINJ4 SC (07:43)
[2023-12-10] MEDS ORDERED: HOME MED LIST COMPLETE! XX SCH (07:45)
[2023-12-10] MEDS: ACETAMINOPHEN TAB 650MG DOSE (2X325MG) PO PRN (07:51)
[2023-12-10] MEDS: INSULIN LISPRO (NovoLOG) PER UNIT SC SCH ×2 (07:52→21:00)
[2023-12-10] MEDS: metFORMIN (GLUCOPHAGE) 1000MG TABLET PO SCH (11:02)
[2023-12-10] MEDS: AMIODARONE 200 MG TAB (PACERONE) PO SCH (11:02)
[2023-12-10] MEDS: METOPROLOL TART 50 MG TAB PO SCH ×2 (11:03→21:40)
[2023-12-10] MEDS: ATORVASTATIN 20 MG TAB PO SCH (11:03)
[2023-12-10 14:40] VITALS: BP 124/94; TEMP 98.1; O2SAT 97
[2023-12-10 20:37] VITALS: BP 117/61; TEMP 97.4; O2SAT 66; O2SAT 96
[2023-12-11 03:37] VITALS: BP 135/66; TEMP 97.5; O2SAT 97
[2023-12-11 07:08] LABS: HEMATOCRIT 39.5 % (36.0-47.0); HEMOGLOBIN 12.2 g/dl (12.0-15.5); MEAN CORPUSCULAR HEMOGLOBIN 33.1 pg (27.0-33.0); MEAN CORPUSCULAR HGB CONC 30.9 g/dl (32.0-36.5); PLATELET COUNT, AUTOMATED 175 10^3/uL (150-450); RED BLOOD COUNT 3.69 10^6/uL (4.00-5.40); WHITE BLOOD COUNT 6.5 10^3/uL (4.0-10.0)
[2023-12-11 07:42] LABS: BLOOD UREA NITROGEN 15 MG/DL (9-23); CALCIUM LEVEL 8.8 MG/DL (8.3-10.6); CARBON DIOXIDE LEVEL 31 MMOL/L (20-31); CHLORIDE LEVEL 104 MMOL/L (98-107); CREATININE FOR GFR 0.88 MG/DL (0.55-1.30); GLOMERULAR FILTRATION RATE > 60.0 (>39); GLUCOSE, FASTING 111 MG/DL (74-106); POTASSIUM SERUM 5.1 MMOL/L (3.5-5.1); SODIUM LEVEL 141 MMOL/L (136-145)
[2023-12-11 07:56] VITALS: BP 133/66
[2023-12-11] MEDS: lisinopriL 5 MG TAB PO SCH (07:56)
[2023-12-11] MEDS: ONDANSETRON 4MG 2ML VIAL IV PRN (11:01)
[2023-12-11] MEDS ORDERED: METF10004 PO (11:46)
[2023-12-11] MEDS ORDERED: ONDANSETRON 4MG 2ML VIAL IV SCH (12:00)
== END 2023-12-11 13:13 | disposition home or self-care (01) ==
LOC: EDBD 00:11 → M ED 00:11 → M ED INP 00:12 → M MSPAV 14:40
PROVIDERS: ADMIT Internal Medicine; ATTEND Family Medicine
DX: E11.649 Type 2 diabetes mellitus with hypoglycemia without coma (principal); E11.21 Type 2 diabetes mellitus with diabetic nephropathy; I48.0 Paroxysmal atrial fibrillation; I49.5 Sick sinus syndrome; E66.9 Obesity, unspecified; E78.5 Hyperlipidemia, unspecified; F41.9 Anxiety disorder, unspecified; F32.A Depression, unspecified; G47.33 Obstructive sleep apnea (adult) (pediatric); J44.9 Chronic obstructive pulmonary disease, unspecified; Z79.4 Long term (current) use of insulin; I34.9 Nonrheumatic mitral valve disorder, unspecified; Z79.899 Other long term (current) drug therapy
CPT/HCPCS: 36415; 71045; 80048; 80076; 81001; 82010; 82550; 82553; 82803; 83036; 83605; 83690; 83930; 84484; 85025; 85027; 87486; 87581; 87633; 87798; 93005; 93041; 94760; 96361; 96374; 96375; 96376; 99285; G0378; J1815; J2405

== ENCOUNTER 2023-12-22 15:09 | Emergency (ER) | payer MEDICARE ==
[~2023-12-22] VITALS: Ht 154.9 cm; Wt 86.0 kg
[~2023-12-22 15:09] MED LIST changes: +INSU100I24 SC
[2023-12-22] MEDS ORDERED: [UNRECOGNIZED DRUG - CODE] PO (15:31)
[2023-12-22] MEDS: KETOROLAC 30 MG/ML 1ML VIAL IV ONE (18:39)
[2023-12-22] MEDS: ONDANSETRON 4MG 2ML VIAL IV ONE (18:39)
[2023-12-22] MEDS: NS 1,000 ML IV ONE (18:39)
[2023-12-22 19:09] LABS: BASO % 0.3 % (0.0-1.0); EOS # 0.1 10^3/uL (0.0-0.5); EOS % 0.6 % (0.0-3.0); HEMATOCRIT 43.5 % (36.0-47.0); HEMOGLOBIN 13.9 g/dl (12.0-15.5); LYMPH # 2.6 10^3/uL (1.5-5.0); LYMPH % 25.9 % (24.0-44.0); MEAN CORPUSCULAR HEMOGLOBIN 32.9 pg (27.0-33.0); MEAN CORPUSCULAR VOLUME 103.1 fl (80.0-96.0); MONO # 0.8 10^3/uL (0.0-0.8); MONO % 8.1 % (2.0-8.0); NEUTROPHILS # 6.4 10^3/uL (1.5-8.5); NEUTROPHILS % 64.9 % (36.0-66.0); PLATELET COUNT, AUTOMATED 217 10^3/uL (150-450); RED BLOOD COUNT 4.22 10^6/uL (4.00-5.40); WHITE BLOOD COUNT 9.9 10^3/uL (4.0-10.0)
[2023-12-22] MEDS ORDERED: ISOVUE-370 76% 100ML VIAL As Ordered ONE (19:12)
[2023-12-22 19:24] LABS: BILIRUBIN,DIRECT 0.1 MG/DL (<0.4); BILIRUBIN,TOTAL 0.4 MG/DL (0.3-1.2); TOTAL PROTEIN 7.3 G/DL (5.7-8.2)
[2023-12-22 20:59] VITALS: BP 123/72; TEMP 97.1; O2SAT 94
[2023-12-22] MEDS: MAGNESIUM CITRATE 300ML BTL PO ONE (21:02)
== END 2023-12-22 21:11 | disposition home or self-care (01) ==
LOC: M ED 15:09
DX: K59.00 Constipation, unspecified (principal); E11.9 Type 2 diabetes mellitus without complications; K21.9 Gastro-esophageal reflux disease without esophagitis; E78.5 Hyperlipidemia, unspecified; M54.50 Low back pain, unspecified; J45.909 Unspecified asthma, uncomplicated; J44.9 Chronic obstructive pulmonary disease, unspecified; Z87.442 Personal history of urinary calculi; Z87.891 Personal history of nicotine dependence; Z88.0 Allergy status to penicillin; Z88.2 Allergy status to sulfonamides; Z88.5 Allergy status to narcotic agent; Z88.6 Allergy status to analgesic agent; Z79.52 Long term (current) use of systemic steroids; Z79.82 Long term (current) use of aspirin; Z79.02 Long term (current) use of antithrombotics/antiplatelets; Z79.811 Long term (current) use of aromatase inhibitors; Z79.899 Other long term (current) drug therapy; Z79.4 Long term (current) use of insulin
CPT/HCPCS: 74018; 74177; 80047; 80076; 81001; 83690; 85025; 96361; 96374; 99284; J1885; J2405; Q9967

== ENCOUNTER → 2024-02-06 | Outpatient (CLI) | payer MEDICARE ==
[~2024-02-06] MED LIST changes: +[UNRECOGNIZED DRUG - CODE] PO
== END ==
LOC: M SLEEP 20:00
PROVIDERS: ATTEND Nurse Practitioner Adult Health
DX: G47.33 Obstructive sleep apnea (adult) (pediatric) (principal)

== ENCOUNTER 2024-03-07 19:20 | Emergency (ER) | payer MEDICARE ==
[~2024-03-07] VITALS: Ht 154.9 cm; Wt 86.1 kg
[2024-03-07 19:25] VITALS: TEMP 98
[2024-03-07] MEDS: IBUPROFEN 400MG TAB PO ONE (20:37)
[2024-03-07 22:05] VITALS: BP 141/67; O2SAT 93
[2024-03-07] MEDS ORDERED: IBUP200T46 PO (22:08)
== END 2024-03-07 22:23 | disposition home or self-care (01) ==
LOC: M ED 19:20
DX: S80.01XA Contusion of right knee, initial encounter (principal); W01.198A Fall on same level from slipping, tripping and stumbling with subsequent striking against other object, initial encounter; K21.9 Gastro-esophageal reflux disease without esophagitis; I10 Essential (primary) hypertension; E11.9 Type 2 diabetes mellitus without complications; E78.5 Hyperlipidemia, unspecified; F17.200 Nicotine dependence, unspecified, uncomplicated; Z88.0 Allergy status to penicillin; Z88.1 Allergy status to other antibiotic agents; Z88.2 Allergy status to sulfonamides; Z88.5 Allergy status to narcotic agent; Z88.6 Allergy status to analgesic agent; Z88.8 Allergy status to other drugs, medicaments and biological substances; Y92.009 Unspecified place in unspecified non-institutional (private) residence as the place of occurrence of the external cause; Y93.89 Activity, other specified; Y99.9 Unspecified external cause status; Z79.52 Long term (current) use of systemic steroids; Z79.811 Long term (current) use of aromatase inhibitors; Z79.4 Long term (current) use of insulin; Z79.899 Other long term (current) drug therapy

== ENCOUNTER 2024-08-24 16:01 | Emergency (ER) | payer MEDICARE, MEDICAID ==
[~2024-08-24] VITALS: Ht 162.6 cm; Wt 77.7 kg
[~2024-08-24 16:01] MED LIST changes: +IBUP200T46 PO
[2024-08-24] MEDS: IBUPROFEN 600MG TAB PO ONE (19:43)
[2024-08-24 22:01] VITALS: BP 177/77; TEMP 98.9; O2SAT 95
== END 2024-08-24 23:03 | disposition home or self-care (01) ==
LOC: M ED 16:01
DX: S22.32XA Fracture of one rib, left side, initial encounter for closed fracture (principal); M19.012 Primary osteoarthritis, left shoulder; Y04.8XXA Assault by other bodily force, initial encounter; E11.9 Type 2 diabetes mellitus without complications; J44.9 Chronic obstructive pulmonary disease, unspecified; I10 Essential (primary) hypertension; Z95.0 Presence of cardiac pacemaker; Z79.52 Long term (current) use of systemic steroids; Z79.4 Long term (current) use of insulin; Z79.899 Other long term (current) drug therapy; Z88.0 Allergy status to penicillin; Z88.6 Allergy status to analgesic agent; Z88.5 Allergy status to narcotic agent; Z88.2 Allergy status to sulfonamides; Z88.8 Allergy status to other drugs, medicaments and biological substances; Y92.009 Unspecified place in unspecified non-institutional (private) residence as the place of occurrence of the external cause; Y93.89 Activity, other specified; Y99.9 Unspecified external cause status; Z87.891 Personal history of nicotine dependence

== ENCOUNTER 2024-08-30 11:21 | Emergency (ER) | payer MEDICARE, MEDICAID ==
[~2024-08-30] VITALS: Ht 162.6 cm; Wt 77.5 kg
[2024-08-30] MEDS: IBUPROFEN 600MG TAB PO ONE (12:10)
[2024-08-30 16:37] VITALS: BP 133/63; TEMP 98; O2SAT 96
== END 2024-08-30 16:42 | disposition home or self-care (01) ==
LOC: EDBD 11:21 → M ED 11:21
DX: J09.X2 Influenza due to identified novel influenza A virus with other respiratory manifestations (principal); E11.9 Type 2 diabetes mellitus without complications; I10 Essential (primary) hypertension; E78.00 Pure hypercholesterolemia, unspecified; K21.9 Gastro-esophageal reflux disease without esophagitis; G47.33 Obstructive sleep apnea (adult) (pediatric); F32.A Depression, unspecified; Z87.891 Personal history of nicotine dependence; Z88.0 Allergy status to penicillin; Z88.1 Allergy status to other antibiotic agents; Z88.5 Allergy status to narcotic agent; Z88.8 Allergy status to other drugs, medicaments and biological substances; Z79.1 Long term (current) use of non-steroidal anti-inflammatories (NSAID); Z79.51 Long term (current) use of inhaled steroids; Z79.84 Long term (current) use of oral hypoglycemic drugs; Z79.899 Other long term (current) drug therapy

== ENCOUNTER 2024-09-29 15:20 | Emergency (ER) | payer MEDICARE, MEDICAID ==
[~2024-09-29 15:20] MED LIST changes: -NYST-13 TOP; +NYST0.1C TOP
[2024-09-29 17:12] LABS: BASO # 0.1 10^3/uL (0.0-0.2); BASO % 0.8 % (0.0-1.0); EOS # 0.2 10^3/uL (0.0-0.5); EOS % 2.6 % (0.0-3.0); HEMATOCRIT 37.3 % (36.0-47.0); HEMOGLOBIN 11.5 g/dl (12.0-15.5); LYMPH # 2.2 10^3/uL (1.5-5.0); LYMPH % 28.2 % (24.0-44.0); MEAN CORPUSCULAR HEMOGLOBIN 33.7 pg (27.0-33.0); MEAN CORPUSCULAR HGB CONC 30.8 g/dl (32.0-36.5); MEAN CORPUSCULAR VOLUME 109.4 fl (80.0-96.0); MONO # 0.7 10^3/uL (0.0-0.8); MONO % 8.3 % (2.0-8.0); NEUTROPHILS # 4.7 10^3/uL (1.5-8.5); NEUTROPHILS % 59.7 % (36.0-66.0); PLATELET COUNT, AUTOMATED 213 10^3/uL (150-450); RED BLOOD COUNT 3.41 10^6/uL (4.00-5.40); WHITE BLOOD COUNT 7.8 10^3/uL (4.0-10.0)
[2024-09-29 17:21] LABS: THYROID STIMULATING HORMONE 2.245 uIU/ML (0.55-4.78)
[2024-09-29 17:22] LABS: ALBUMIN 3.2 G/DL (3.2-5.2); ALKALINE PHOSPHATASE 154 U/L (35-104); ALT/SGPT 38 U/L (7.0-40); AST/SGOT 56 U/L (<34); BILIRUBIN,DIRECT < 0.1 MG/DL (<0.4); BILIRUBIN,TOTAL 0.2 MG/DL (0.3-1.2); BLOOD UREA NITROGEN 18 MG/DL (9-23); CARBON DIOXIDE LEVEL 30 MMOL/L (20-31); CHLORIDE LEVEL 109 MMOL/L (98-107); CK-MB VALUE MASS 1.6 NG/ML (<3.6); CPK CREATINE PHOSPHOKINASE 71 U/L (34-145); CREATININE FOR GFR 0.91 MG/DL (0.55-1.30); GLOMERULAR FILTRATION RATE 66.6 (>39); GLUCOSE, FASTING 203 MG/DL (74-106); MB/CK RELATIVE INDEX 2.25 (< OR =4); SODIUM LEVEL 148 MMOL/L (136-145); TOTAL PROTEIN 6.2 G/DL (5.7-8.2)
[2024-09-29 17:36] VITALS: BP 192/110
[2024-09-29] MEDS: **hydrALAZINE HCL** 25 MG TAB PO ONE (17:36)
[2024-09-29] MEDS: methylPREDNISolone 125MG 2ML VIAL IV ONE (17:36)
[2024-09-29] MEDS: IPRATROPIUM 0.5MG/ALBUTEROL 2.5MG INH SOL UD 3ML NEB PRN (17:38)
[2024-09-29] MEDS ORDERED: ISOVUE-370 76% 100ML VIAL As Ordered ONE (18:38)
[2024-09-29 19:04] LABS: CK-MB VALUE MASS 1.6 NG/ML (<3.6)
[2024-09-29 19:07] LABS: MB/CK RELATIVE INDEX 2.85 (< OR =4)
[2024-09-29 20:43] VITALS: O2SAT 98
[2024-09-29 21:03] VITALS: TEMP 98.7; O2SAT 96
[2024-09-29 21:10] VITALS: BP 146/74
[2024-09-29] MEDS ORDERED: PRED20TA PO (21:13)
== END 2024-09-29 21:22 | disposition home or self-care (01) ==
LOC: M ED 15:20
DX: J44.1 Chronic obstructive pulmonary disease with (acute) exacerbation (principal); I48.91 Unspecified atrial fibrillation; E11.9 Type 2 diabetes mellitus without complications; E78.5 Hyperlipidemia, unspecified; G47.33 Obstructive sleep apnea (adult) (pediatric); Z90.49 Acquired absence of other specified parts of digestive tract; Z90.410 Acquired total absence of pancreas; Z87.891 Personal history of nicotine dependence; Z88.0 Allergy status to penicillin; Z88.8 Allergy status to other drugs, medicaments and biological substances; Z88.2 Allergy status to sulfonamides; Z88.1 Allergy status to other antibiotic agents; Z95.0 Presence of cardiac pacemaker; E04.1 Nontoxic single thyroid nodule; I25.10 Atherosclerotic heart disease of native coronary artery without angina pectoris; Z79.899 Other long term (current) drug therapy
CPT/HCPCS: 71046; 71275; 80048; 80076; 82550; 82553; 83880; 84443; 84484; 85025; 87486; 87581; 87633; 87798; 93005; 93041; 94640; 94760; 96374; 99285; J2919; Q9967

== ENCOUNTER → 2025-01-20 | Outpatient (CLI) | payer MEDICARE, MEDICAID ==
[~2025-01-20] MED LIST changes: -AMIO200T49 PO; +AMIO200T54 PO; +AMIT10TA11 PO; -AMIT10TA7 PO; +HYDR12.510 PO; -HYDR12CA PO; +SLOW1TAB3 PO; -SLOWTAB2 PO
== END ==
LOC: M SLEEP 20:00
PROVIDERS: ATTEND Nurse Practitioner Adult Health
DX: G47.33 Obstructive sleep apnea (adult) (pediatric) (principal)

== ENCOUNTER 2025-05-07 18:56 | Emergency (ER) | payer MEDICARE, MEDICAID ==
[~2025-05-07] VITALS: Ht 152.4 cm; Wt 103.6 kg
[2025-05-07] MEDS ORDERED: AMIODARONE 200 MG TAB PO ONE (19:30)
[2025-05-07 19:46] LABS: BASO # 0.0 10^3/uL (0.0-0.2); BASO % 0.4 % (0.0-1.0); EOS # 0.1 10^3/uL (0.0-0.5); EOS % 1.6 % (0.0-3.0); LYMPH # 1.1 10^3/uL (1.5-5.0); LYMPH % 14.1 % (24.0-44.0); MONO # 0.6 10^3/uL (0.0-0.8); MONO % 7.6 % (2.0-8.0); NEUTROPHILS # 6.1 10^3/uL (1.5-8.5); NEUTROPHILS % 76.2 % (36.0-66.0); PLATELET COUNT, AUTOMATED 219 10^3/uL (150-450)
[2025-05-07] MEDS: amLODIPine 10 MG TAB PO ONE (19:57)
[2025-05-07 20:10] LABS: CK-MB VALUE MASS 2.7 NG/ML (<3.6)
[2025-05-07 20:12] LABS: CPK CREATINE PHOSPHOKINASE 66.0 U/L (34-145); MB/CK RELATIVE INDEX 4.09 (< OR =4)
[2025-05-07 20:21] LABS: ALT/SGPT 13.0 U/L (7.0-40); AST/SGOT 20.0 U/L (<34); CALCIUM LEVEL 8.4 MG/DL (8.3-10.6); CARBON DIOXIDE LEVEL 30.0 MMOL/L (20-31); CHLORIDE LEVEL 103.0 MMOL/L (98-107); CREATININE FOR GFR 0.86 MG/DL (0.55-1.30); GLOMERULAR FILTRATION RATE 70.9 (>39); POTASSIUM SERUM 3.9 MMOL/L (3.5-5.1); SODIUM LEVEL 144.0 MMOL/L (136-145)
[2025-05-07 22:03] VITALS: BP 197/88
[2025-05-07] MEDS: METOPROLOL TARTRATE 100 MG TAB PO ONE (22:03)
[2025-05-07] MEDS: HumuLIN R (REGULAR) INSULIN (NovoLIN R) **100 U/ML** PER UNIT SC STA (22:04)
[2025-05-07 22:48] LABS: CK-MB VALUE MASS 2.2 NG/ML (<3.6)
[2025-05-07 22:50] LABS: CPK CREATINE PHOSPHOKINASE 62.0 U/L (34-145); MB/CK RELATIVE INDEX 3.54 (< OR =4)
[2025-05-08 00:43] LABS: GLUCOSE,RANDOM 246.0 MG/DL (LESS THAN 200)
[2025-05-08 00:45] LABS: CPK CREATINE PHOSPHOKINASE 63.0 U/L (34-145)
[2025-05-08 00:46] LABS: CK-MB VALUE MASS 2.4 NG/ML (<3.6); MB/CK RELATIVE INDEX 3.8 (< OR =4)
[2025-05-08] MEDS ORDERED: ISOVUE-370 76% 100 ML VIAL As Ordered ONE (00:53)
[2025-05-08] MEDS: ATORVASTATIN 20 MG TAB PO ONE (02:02)
[2025-05-08] MEDS: ASPIRIN 81 MG CHEWABLE TABLET PO ONE (02:03)
[2025-05-08 02:05] VITALS: TEMP 96.6
[2025-05-08 02:46] LABS: D-DIMER QUANT 1.07 ug/mL (<0.5); INR 1.03
[2025-05-08 06:20] VITALS: O2SAT 93
[2025-05-08 06:39] VITALS: BP 178/78
== END 2025-05-08 06:44 | disposition home or self-care (01) ==
LOC: M ED 18:56 → EDBD 18:56 → M ED 05-08 06:44
DX: R07.89 Other chest pain (principal); R06.02 Shortness of breath; I10 Essential (primary) hypertension; J44.9 Chronic obstructive pulmonary disease, unspecified; E11.9 Type 2 diabetes mellitus without complications; G47.33 Obstructive sleep apnea (adult) (pediatric); F10.10 Alcohol abuse, uncomplicated; Z88.8 Allergy status to other drugs, medicaments and biological substances; Z88.5 Allergy status to narcotic agent; Z88.0 Allergy status to penicillin; Z88.1 Allergy status to other antibiotic agents; Z79.1 Long term (current) use of non-steroidal anti-inflammatories (NSAID); Z79.899 Other long term (current) drug therapy; Z79.52 Long term (current) use of systemic steroids; Z79.82 Long term (current) use of aspirin; Z79.02 Long term (current) use of antithrombotics/antiplatelets
CPT/HCPCS: 71046; 71275; 80053; 82550; 82553; 82947; 83880; 84484; 85025; 85379; 85610; 85730; 87486; 87581; 87633; 87798; 93005; 96372; 99285; J1815; Q9967